=== PATIENT | male | born 1990 | race Caucasian/White ===

== ENCOUNTER 2020-01-24 01:32 | Emergency (ER) | payer BC ==
[~2020-01-24] VITALS: Ht 177.8 cm; Wt 75.0 kg
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
[2020-01-24 01:57] LABS: BASO # 0.1 x10^3/uL (0.0-0.2); BASO % 1 % (0-3); EOS # 0.1 x10^3/uL (0.0-0.7); EOS % 1 % (0-3); HEMATOCRIT 41.1 % (39.0-53.0); LYMPH # 1.2 x10^3/uL (1.0-4.8); LYMPH % 16 % (24-48); MEAN CORPUSCULAR HEMOGLOBIN 31 pg (25-35); MEAN CORPUSCULAR HGB CONC 34 g/dL (31-37); MEAN CORPUSCULAR VOLUME 90 fL (79-100); MONO # 0.5 x10^3/uL (0.0-1.1); MONO % 7 % (0-9); NEUT # 5.6 x10^3/uL (1.8-7.7); NEUT % 76 % (31-73); PLATELET COUNT 263 x10^3/uL (140-400); RED BLOOD COUNT 4.55 x10^6/uL (4.30-5.70); RED CELL DISTRIBUTION WIDTH 13.3 % (11.5-14.5); WHITE BLOOD COUNT 7.4 x10^3/uL (4.0-11.0)
[2020-01-24 02:05] LABS: CALCIUM 8.7 mg/dL (8.5-10.1); CREATININE 0.8 mg/dL (0.7-1.3); GFR 113.5; POTASSIUM 4.2 mmol/L (3.5-5.1)
[2020-01-24 02:12] LABS: ALBUMIN 3.9 g/dL (3.4-5.0); ALBUMIN/GLOBULIN RATIO 1.1 (1.0-1.7); TOTAL BILIRUBIN 0.3 mg/dL (0.2-1.0); TOTAL PROTEIN 7.4 g/dL (6.4-8.2)
--- NOTE | 2020-01-24 02:27 | RAD ---
EXAM: PORTABLE CHEST 1V 01/24/2020 1:48 AM CLINICAL INDICATION: Chest pain COMPARISON: None TECHNIQUE: AP upright view of the chest FINDINGS: The heart and mediastinum are normal. Lungs are well-expanded and clear. No consolidation, pleural effusion, or pneumothorax. Pulmonary vascularity is normal. The thoracic skeleton is intact. IMPRESSION: Normal chest radiograph. Electronically signed by: Claribel Roblero MD (01/24/2020 2:24 AM) [id number]
[2020-01-24 02:55] VITALS: BP 124/73
--- NOTE | 2020-01-24 04:34 | EKG ---
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
== END 2020-01-24 03:05 | disposition home or self-care (01) ==
LOC: ER 01:32
DX: S40.212A Abrasion of left shoulder, initial encounter (principal); R07.89 Other chest pain; F17.200 Nicotine dependence, unspecified, uncomplicated; X58.XXXA Exposure to other specified factors, initial encounter; Y93.89 Activity, other specified; Y92.89 Other specified places as the place of occurrence of the external cause; Y99.8 Other external cause status
CPT/HCPCS: 36415; 71045; 80053; 83690; 84484; 85025; 85379; 93005; 99285; G0480

== ENCOUNTER 2020-02-17 14:29 | Emergency (ER) | payer BC ==
[~2020-02-17] VITALS: Ht 177.8 cm; Wt 72.7 kg
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
[2020-02-17 17:16] VITALS: BP 150/92
== END 2020-02-17 17:16 | disposition home or self-care (01) ==
LOC: ER 14:29
DX: S30.860A Insect bite (nonvenomous) of lower back and pelvis, initial encounter (principal); M25.551 Pain in right hip; F41.9 Anxiety disorder, unspecified; F32.9 Major depressive disorder, single episode, unspecified; F17.200 Nicotine dependence, unspecified, uncomplicated; Z98.890 Other specified postprocedural states; W57.XXXA Bitten or stung by nonvenomous insect and other nonvenomous arthropods, initial encounter; Y93.89 Activity, other specified; Y92.89 Other specified places as the place of occurrence of the external cause; Y99.8 Other external cause status
CPT/HCPCS: 73502; 99283

== ENCOUNTER 2020-04-04 12:21 | Emergency (ER) | payer SELFPAY ==
[~2020-04-04] VITALS: Ht 177.8 cm; Wt 72.7 kg
[2020-04-04 12:45] VITALS: BP 148/72
[2020-04-04 16:27] LABS: BASO # 0.1 x10^3/uL (0.0-0.2); BASO % 1 % (0-3); EOS # 0.1 x10^3/uL (0.0-0.7); EOS % 2 % (0-3); HEMATOCRIT 39.4 % (39.0-53.0); HEMOGLOBIN 13.4 g/dL (13.0-17.5); LYMPH # 1.8 x10^3/uL (1.0-4.8); LYMPH % 30 % (24-48); MEAN CORPUSCULAR HEMOGLOBIN 31 pg (25-35); MEAN CORPUSCULAR HGB CONC 34 g/dL (31-37); MEAN CORPUSCULAR VOLUME 92 fL (79-100); MONO # 0.6 x10^3/uL (0.0-1.1); MONO % 10 % (0-9); NEUT # 3.5 x10^3/uL (1.8-7.7); NEUT % 58 % (31-73); PLATELET COUNT 234 x10^3/uL (140-400); RED BLOOD COUNT 4.29 x10^6/uL (4.30-5.70); RED CELL DISTRIBUTION WIDTH 13.2 % (11.5-14.5); WHITE BLOOD COUNT 6.1 x10^3/uL (4.0-11.0)
[2020-04-04 16:46] LABS: ACETAMIN < 2 mcg/ml (10-30); SALIC < 2.8 mg/dL (2.8-20.0)
[2020-04-04 16:47] LABS: ETHANOL < 10 mg/dL (0-10)
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
[2020-04-04 16:54] LABS: ALBUMIN 3.6 g/dL (3.4-5.0); ALBUMIN/GLOBULIN RATIO 1.2 (1.0-1.7); CALCIUM 8.3 mg/dL (8.5-10.1); CREATININE 0.6 mg/dL (0.7-1.3); GFR 158.2; POTASSIUM 3.8 mmol/L (3.5-5.1); TOTAL BILIRUBIN 0.5 mg/dL (0.2-1.0); TOTAL PROTEIN 6.6 g/dL (6.4-8.2)
[2020-04-04] MEDS ORDERED: hydrOXYzine 25 MG TABLET PO ONE (17:00)
[2020-04-04 18:15] LABS: BARBITURATES NEG (NEG); BENZODIAZEPINES NEG (NEG); CANNABINOIDS NEG (NEG); COCAINE NEG (NEG); METHADONE NEG (NEG); OPIATES NEG (NEG); PHENCYCLIDINE NEG (NEG)
[2020-04-04] MEDS ORDERED: HYDR25TA PO (18:16)
[2020-04-04 18:21] LABS: AMPHETAMINE/METHAMPHETAMINE NEG (NEG)
== END 2020-04-04 18:26 | disposition home or self-care (01) ==
LOC: ER 12:21
DX: F41.9 Anxiety disorder, unspecified (principal); R11.0 Nausea; R51.9 Headache, unspecified; F32.9 Major depressive disorder, single episode, unspecified; I10 Essential (primary) hypertension; F17.210 Nicotine dependence, cigarettes, uncomplicated; Z98.890 Other specified postprocedural states
CPT/HCPCS: 36415; 80053; 80307; 80329; 85025; 99284; G0480

== ENCOUNTER 2020-04-17 10:22 | Emergency (ER) | payer SELFPAY ==
[~2020-04-17] VITALS: Ht 177.8 cm; Wt 72.7 kg
[~2020-04-17 10:22] MED LIST: HYDR25TA PO
--- NOTE | 2020-04-17 11:09 | PHYS DOC ---
Past Medical History Past Medical History: Anxiety, Depression, Hypertension Past Surgical History: Other Additional Past Surgical Histo: L ANKLE, L HAND Smoking Status: Current Every Day Smoker Alcohol Use: Occasionally Drug Use: None General Adult EDM: Chief Complaint: Insomnia HPI: HPI: Patient is a 29 year old male who presents with stating that he cannot sleep and he is very anxious. States he has been up for the last 4 days with maybe an hour or 2 of sleep. He states his neighbors are constantly yelling at him and are harassing him. He states that he is taking kratom every 6 hours because it helps with his shoulder pain he can get his shoulder fixed. He states that kratom does not make you awake it is a sedative. He states that it helps his pain. He states that " he knows his body and I know more about this than you do and that is not how it works." Patient states what is keeping him awake is his " nerves". I asked the patient if he has ever been seen or been on medication for his anxiety. He states " yes, I have been seen in all they do is try to get me that trash hydroxyzine. That stuff is worse for you and is more of a sedative and does not help. They will not give me the good stuff." I told the patient it is likely the kratom and he would not be getting anything stronger than hydroxyzine in the emergency room. " Hydroxyzine is trash. It kills you. It is worse for you than any other medication you can give me. It is a sedative." I told the patient that hydroxyzine when taking appropriately will not kill you and will not be addictive. I told him that Xanax and other prescribed medications are more likely to become addictive and can kill you but also they are sedatives. Patient states " you are wrong and you do not know anything." Patient has a history of depression, anxiety, smoker, hypertension. Patient seems very paranoid. Patient is yelling at me and becoming aggressive while i'm in the room. Review of Systems: Review of Systems: Constitutional: Denies fever or chills. [] Eyes: Denies change in visual acuity. [] HENT: Denies nasal congestion or sore throat. [] Respiratory: Denies cough or shortness of breath. [] Cardiovascular: Denies chest pain or edema. [] GI: Denies abdominal pain, nausea, vomiting, bloody stools or diarrhea. [] : Denies dysuria. [] Musculoskeletal: Denies back pain or joint pain. [] Integument: Denies rash. [] Neurologic: Denies headache, focal weakness or sensory changes. [] Endocrine: Denies polyuria or polydipsia. [] Lymphatic: Denies swollen glands. [] Psychiatric: Denies depression. +anxiety, +Paranoia, +insomnia. [] Heart Score: Risk Factors: Risk Factors: DM, Current or recent (<one month) smoker, HTN, HLP, family history of CAD, obesity. Risk Scores: Score 0 - 3: 2.5% MACE over next 6 weeks - Discharge Home Score 4 - 6: 20.3% MACE over next 6 weeks - Admit for Clinical Observation Score 7 - 10: 72.7% MACE over next 6 weeks - Early Invasive Strategies Allergies: Allergies: Allergies Coded Allergies Type Severity Reaction Last Updated Verified No Known Drug Allergies 01/24/20 No Physical Exam: PE: Constitutional: Well developed, well nourished, no acute distress, non-toxic appearance. [] HENT: Normocephalic, atraumatic, bilateral external ears normal, oropharynx moist, no oral exudates, nose normal. [] Eyes: PERRLA, EOMI, conjunctiva normal, no discharge. [] Neck: Normal range of motion, no tenderness, supple, no stridor. [] Cardiovascular:Heart rate regular rhythm, no murmur [] Lungs & Thorax: Bilateral breath sounds clear to auscultation [] Abdomen: Bowel sounds normal, soft, no tenderness, no masses, no pulsatile masses. [] Skin: Warm, dry, no erythema, no rash. [] Back: No tenderness, no CVA tenderness. [] Extremities: No tenderness, no cyanosis, no clubbing, ROM intact, no edema. [] Neurologic: Alert and oriented X 3, normal motor function, normal sensory function, no focal deficits noted. [] Psychologic: Paranoid, anxious, aggressive. Affect normal, judgement normal, mood normal. [] EKG: EK and read by Dr. Jimenes as sinus tach and no STEMI. Radiology/Procedures: Radiology/Procedures: [] Course & Med Decision Making: Course & Med Decision Making Pertinent Labs and Imaging studies reviewed. (See chart for details) See HPI. Patient is alert and oriented x4. Speaks in full complete sentences. Ambulatory with a steady gait. Skin pink warm and dry. Patient denies chest pain, shortness of breath, headache, dizziness, syncope, drug use, alcohol use, abdominal pain, nausea, vomiting, diarrhea, cough, fever, numbness or tingling, focal weakness. I have spoken to Mao with PAT team and they are coming in to speak with the patient. Blood work unremarkable. Patient is stable. PAT team actually went in to talk to the patient who refused her resources and told her also that it was not the Kratom. He states he has not been to stop taking kratom. He states he does not want her resources or help to get any other medications. Patient has been medically cleared. Patient also denies SI or HI or any hallucinations. He denied this with the PAT team too. Patient is discharged with Vistaril. [] Jayjay Disclaimer: Jayjay Disclaimer: This electronic medical record was generated, in whole or in part, using a voice recognition dictation system. 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 Stop using kratom or try to slowly wean yourself off of it. Take a Benadryl to see if that helps you sleep provider use the hydroxyzine I have given you. Scripts Hydroxyzine Hcl (HYDROXYZINE HCL) 25 Mg Tablet 1 TAB PO BID, #14 TAB Prov: MORA FORRESTER APRN 04/17/20 MORA FORRESTER APRN Apr 17, 2020 11:09
[2020-04-17] MEDS ORDERED: IV NORMAL SALINE 1000ML BAG 1,000 ML IV SCH (11:15)
[2020-04-17 11:27] LABS: BILIRUBIN,URINE SMALL (NEG); CLARITY,URINE CLEAR; COLOR,URINE AMBER; NITRITE,URINE NEGATIVE (NEG); PH,URINE 5.5 (<5.0-8.0); PROTEIN,URINE 30 mg/dL (NEG-TRACE)
[2020-04-17 11:29] LABS: BASO # 0.1 x10^3/uL (0.0-0.2); BASO % 1 % (0-3); EOS # 0.2 x10^3/uL (0.0-0.7); EOS % 2 % (0-3); HEMOGLOBIN 15.2 g/dL (13.0-17.5); LYMPH # 1.8 x10^3/uL (1.0-4.8); LYMPH % 19 % (24-48); MEAN CORPUSCULAR HEMOGLOBIN 31 pg (25-35); MEAN CORPUSCULAR HGB CONC 34 g/dL (31-37); MEAN CORPUSCULAR VOLUME 90 fL (79-100); MONO # 0.8 x10^3/uL (0.0-1.1); MONO % 8 % (0-9); NEUT # 6.6 x10^3/uL (1.8-7.7); NEUT % 70 % (31-73); PLATELET COUNT 342 x10^3/uL (140-400); RED BLOOD COUNT 4.91 x10^6/uL (4.30-5.70); RED CELL DISTRIBUTION WIDTH 12.8 % (11.5-14.5); WHITE BLOOD COUNT 9.3 x10^3/uL (4.0-11.0)
[2020-04-17 11:35] LABS: BARBITURATES NEG (NEG); BENZODIAZEPINES NEG (NEG); CANNABINOIDS NEG (NEG); COCAINE NEG (NEG); METHADONE NEG (NEG); OPIATES NEG (NEG); PHENCYCLIDINE NEG (NEG)
[2020-04-17 11:39] LABS: CALCIUM 8.8 mg/dL (8.5-10.1); CREATININE 0.8 mg/dL (0.7-1.3); GFR 113.5; POTASSIUM 3.3 mmol/L (3.5-5.1)
[2020-04-17 11:41] LABS: BACTERIA,URINE FEW /HPF (0-FEW); HYALINE CASTS, URINE OCCASIONAL /HPF; RBC,URINE 0 /HPF (0-2); WBC,URINE 0 /HPF (0-4)
[2020-04-17 11:44] LABS: AMPHETAMINE/METHAMPHETAMINE NEG (NEG)
[2020-04-17 11:46] LABS: ALBUMIN 4.1 g/dL (3.4-5.0); ALBUMIN/GLOBULIN RATIO 1.1 (1.0-1.7); TOTAL BILIRUBIN 0.9 mg/dL (0.2-1.0); TOTAL PROTEIN 7.8 g/dL (6.4-8.2)
[2020-04-17 11:54] LABS: ACETAMIN < 2 mcg/ml (10-30); ETHANOL < 10 mg/dL (0-10); SALIC < 2.8 mg/dL (2.8-20.0)
[2020-04-17] MEDS ORDERED: HYDR25TA PO (13:10)
[2020-04-17 14:19] VITALS: BP 125/68
== END 2020-04-17 14:35 | disposition home or self-care (01) ==
LOC: ER 10:22
DX: F41.9 Anxiety disorder, unspecified (principal); G47.00 Insomnia, unspecified; F32.9 Major depressive disorder, single episode, unspecified; I10 Essential (primary) hypertension; F17.200 Nicotine dependence, unspecified, uncomplicated; Z98.890 Other specified postprocedural states
CPT/HCPCS: 36415; 80053; 80307; 80329; 81001; 83690; 83880; 84484; 85025; 96360; 96361; 99285; G0480; J7030; 93005

== ENCOUNTER 2020-05-03 03:09 | Emergency (ER) | payer SELFPAY ==
[~2020-05-03] VITALS: Ht 177.8 cm; Wt 72.7 kg
[2020-05-03 03:30] VITALS: BP 132/78
[2020-05-03] MEDS ORDERED: IBUPROFEN 400 MG TABLET. PO ONE (03:30)
[2020-05-03] MEDS ORDERED: CYCLOBENZAPRINE 10 MG TABLET. PO ONE (04:30)
[2020-05-03] MEDS ORDERED: CYCL10TA2 PO (04:38)
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
== END 2020-05-03 05:00 | disposition home or self-care (01) ==
LOC: ER 03:09
DX: M25.511 Pain in right shoulder (principal); R25.2 Cramp and spasm; F41.9 Anxiety disorder, unspecified; F32.9 Major depressive disorder, single episode, unspecified; I10 Essential (primary) hypertension; F17.200 Nicotine dependence, unspecified, uncomplicated; Z98.890 Other specified postprocedural states
CPT/HCPCS: 99283

== ENCOUNTER 2020-09-21 22:01 | Emergency (ER) | payer SELFPAY ==
[~2020-09-21] VITALS: Ht 177.8 cm; Wt 58.0 kg
[~2020-09-21 22:01] MED LIST changes: +CYCL10TA2 PO
--- NOTE | 2020-09-21 22:11 | EKG ---
[facility] [address] [place] [address] Test Date: 2020-09-21 Test Time: 22:03:31 Pat Name: ARACELI HEADLEY Department: Room: Gender: M Mica Sizer: : 1990 Requested By: TRAN LOJA Order Number: [id number] Reading MD: Measurements Intervals Painter Rate: 88 P: 16 NM: 182 QRS: 68 QRSD: 94 T: 41 QT: 378 QTc: 461 Interpretive Statements SINUS RHYTHM QRS(T) CONTOUR ABNORMALITY CONSIDER INFERIOR MYOCARDIAL DAMAGE POSSIBLY ABNORMAL ECG RI6.01 No previous ECG available for comparison
--- NOTE | 2020-09-21 22:12 | PHYS DOC ---
Past Medical History Past Medical History: Anxiety, Depression, Hypertension Past Surgical History: Other Additional Past Surgical Histo: L ANKLE, L HAND Smoking Status: Current Every Day Smoker Alcohol Use: None Drug Use: None General Adult EDM: Chief Complaint: CHEST PAIN HPI: HPI: Patient is a 30 year old male presents with the chief complaint of chest pain. Onset of chest pain 1 hour prior to arrival. Patient states pain is located substernal and constant since onset. Denies any associated SOB, nausea, or vomiting. Patient states he feels fatigued and weak. States prior to arrival he felt as if he was going to pass out. Review of Systems: Review of Systems: Review of systems: Constitutional symptoms- No fever, no chills. Eyes- No Discharge, No Visual Loss Respiratory symptoms- No shortness of breath, No wheezing, No Dyspnea on Exertion Cardiovascular Systems;Positive chest pain, No Palpitations, No syncope Gastrointestinal symptoms: NO abdominal pain, no nausea, no vomiting or diarrhea. Genitourinary symptoms: No dysuria. Musculoskeletal symptoms: No back pain No extremity pain. NEUROLOGICAL Symptoms: No headache, no generalized weakness; No focal Weakness positive fatigue Heart Score: C/O Chest Pain: N/A Risk Factors: Risk Factors: DM, Current or recent (<one month) smoker, HTN, HLP, family history of CAD, obesity. Risk Scores: Score 0 - 3: 2.5% MACE over next 6 weeks - Discharge Home Score 4 - 6: 20.3% MACE over next 6 weeks - Admit for Clinical Observation Score 7 - 10: 72.7% MACE over next 6 weeks - Early Invasive Strategies Allergies: Allergies: Allergies Coded Allergies Type Severity Reaction Last Updated Verified No Known Drug Allergies 01/24/20 No Physical Exam: PE: General: alert, no acute distress. Skin: warm, dry and intact. Head:: Normocephalic, atraumatic. Neck: Trachea midline. Eyes: EOMI, Normal conjunctiva, No drainage CARDIOVASCULAR: Regular rate and rhythm RESPIRATORY: No respiratory distress Back: Full range of motion. MUSCULOSKELETAL: Full range of motion of bilateral upper and lower extremities. GASTROINTESTINAL: Abdomen soft without rebound or guarding. NEUROLOGICAL: Alert and noted to person, place and time. No neurological deficits observed Psychiatric: Cooperative. Normal judgment EKG: EKG: [] Normal Sinus Rhythm Rate [address] elevation No ST depression No acute AR Performed at 2203 Radiology/Procedures: Radiology/Procedures: [] Impression: Chest x-ray no acute abnormality Course & Med Decision Making: Course & Med Decision Making Pertinent Labs and Imaging studies reviewed. (See chart for details) [] Dragon Disclaimer: Dragon Disclaimer: This electronic medical record was generated, in whole or in part, using a voice recognition dictation system. Departure Departure Impression: Primary Impression: Chest pain Disposition: HOME / SELF CARE / HOMELESS Condition: STABLE Referrals: UNKNOWN PCP NAME (PCP) Patient Instructions: Chest Pain (Nonspecific) TRAN LOJA DO Sep 21, 2020 22:12
[2020-09-21 22:15] LABS: BASO % 1 % (0-3); EOS # 0.1 x10^3/uL (0.0-0.7); EOS % 1 % (0-3); HEMATOCRIT 38.5 % (39.0-53.0); LYMPH # 1.5 x10^3/uL (1.0-4.8); LYMPH % 24 % (24-48); MEAN CORPUSCULAR HEMOGLOBIN 31 pg (25-35); MEAN CORPUSCULAR HGB CONC 34 g/dL (31-37); MEAN CORPUSCULAR VOLUME 92 fL (79-100); MONO # 0.4 x10^3/uL (0.0-1.1); MONO % 7 % (0-9); NEUT # 4.2 x10^3/uL (1.8-7.7); NEUT % 67 % (31-73); PLATELET COUNT 248 x10^3/uL (140-400); RED BLOOD COUNT 4.18 x10^6/uL (4.30-5.70); RED CELL DISTRIBUTION WIDTH 13.1 % (11.5-14.5); WHITE BLOOD COUNT 6.3 x10^3/uL (4.0-11.0)
[2020-09-21 22:32] LABS: CREATININE 0.9 mg/dL (0.7-1.3); GFR 98.4; POTASSIUM 3.5 mmol/L (3.5-5.1)
[2020-09-21 22:37] LABS: ALBUMIN 3.8 g/dL (3.4-5.0); ALBUMIN/GLOBULIN RATIO 1.3 (1.0-1.7); TOTAL BILIRUBIN 0.3 mg/dL (0.2-1.0); TOTAL PROTEIN 6.7 g/dL (6.4-8.2)
--- NOTE | 2020-09-21 22:49 | RAD ---
Exam: Chest one view INDICATION: Chest pain TECHNIQUE: Frontal view of the chest Comparisons: 01/24/2020 FINDINGS: The cardiomediastinal silhouette and pulmonary vessels are within normal limits. The lung and pleural spaces are clear. IMPRESSION: No acute cardiopulmonary process. Electronically signed by: Yuliana Saleh MD (09/21/2020 10:47 PM) [facility]
[2020-09-21 22:55] VITALS: BP 128/79
== END 2020-09-21 23:07 | disposition home or self-care (01) ==
LOC: ER 22:01
DX: R07.2 Precordial pain (principal); I10 Essential (primary) hypertension; F17.200 Nicotine dependence, unspecified, uncomplicated
CPT/HCPCS: 36415; 71045; 80053; 84484; 85025; 93005; 99285-25

== ENCOUNTER 2020-11-18 20:46 | Emergency (ER) | payer SELFPAY ==
[~2020-11-18 20:46] MED LIST changes: +SENN-189 PO
[2020-11-18 22:00] VITALS: BP 143/88
== END 2020-11-19 02:36 | disposition left against medical advice (07) ==
LOC: ER 20:46
DX: R10.9 Unspecified abdominal pain (principal); Z53.21 Procedure and treatment not carried out due to patient leaving prior to being seen by health care provider

== ENCOUNTER 2020-11-23 13:32 | Emergency (ER) | payer SELFPAY ==
[~2020-11-23] VITALS: Ht 177.8 cm; Wt 70.5 kg
[2020-11-23] MEDS ORDERED: methylPREDNISolone SOD SUCC PF 125 MG/2 ML VIAL. IM ONE (17:30)
[2020-11-23] MEDS ORDERED: FAMOTIDINE 20 MG TABLET. PO ONE (17:30)
[2020-11-23] MEDS ORDERED: diphenhydrAMINE HCL 25 MG CAPSULE PO ONE (17:30)
--- NOTE | 2020-11-23 18:10 | PHYS DOC ---
Past Medical History Past Medical History: Anxiety, Depression, Hypertension Additional Past Medical Histor: Chronic pain Past Surgical History: Other Additional Past Surgical Histo: WRIST AND ANKLE SURGERY Smoking Status: Current Every Day Smoker Alcohol Use: Occasionally Drug Use: None General Adult EDM: Chief Complaint: FACE PROBLEM HPI: HPI: Patient is a 30 year old male with history of depression, hypertension, anxiety, who presents to the ED today complaining of upper chest swelling that began this morning when he woke up. Patient denies ingesting anything new but states he takes Kratom and CBD. Denies any new soaps or laundry detergents. Review of Systems: Review of Systems: Constitutional: Denies fever or chills. [] Eyes: Denies change in visual acuity. [] HENT: Denies nasal congestion or sore throat. [] Respiratory: Denies cough or shortness of breath. [] Cardiovascular: Denies chest pain or edema. [] GI: Denies abdominal pain, nausea, vomiting, bloody stools or diarrhea. [] : Denies dysuria. [] Musculoskeletal: Denies back pain or joint pain. [] Integument: Reports upper face swelling Neurologic: Denies headache, focal weakness or sensory changes. [] Psychiatric: Denies depression or anxiety. [] Heart Score: C/O Chest Pain: N/A Risk Factors: Risk Factors: DM, Current or recent (<one month) smoker, HTN, HLP, family history of CAD, obesity. Risk Scores: Score 0 - 3: 2.5% MACE over next 6 weeks - Discharge Home Score 4 - 6: 20.3% MACE over next 6 weeks - Admit for Clinical Observation Score 7 - 10: 72.7% MACE over next 6 weeks - Early Invasive Strategies Current Medications: Current Medications Medications (Trade) Dose Ordered Sig/Barbara Start Time Stop Time Status Last Admin Dose Admin Diphenhydramine HCl (Benadryl) 25 mg 1X ONCE 11/23/20 17:30 11/23/20 17:31 DC 11/23/20 17:45 25 MG Famotidine (Pepcid) 20 mg 1X ONCE 11/23/20 17:30 11/23/20 17:31 DC 11/23/20 17:45 20 MG Methylprednisolone Sodium Succinate (SOLU-Medrol 125MG VIAL) 125 mg 1X ONCE 8/16/21 17:30 11/23/20 17:31 DC 11/23/20 17:45 125 MG Allergies: Allergies: Allergies Coded Allergies Type Severity Reaction Last Updated Verified No Known Drug Allergies 01/24/20 No Physical Exam: PE: Constitutional: Well developed, well nourished, no acute distress, non-toxic appearance. [] HENT: Normocephalic, atraumatic, bilateral external ears normal, oropharynx moist, no oral exudates, nose normal. Airway is open Eyes: PERRLA, EOMI, conjunctiva normal, no discharge. [] Neck: Normal range of motion, no tenderness, supple, no stridor. [] Cardiovascular:Heart rate regular rhythm, no murmur [] Lungs & Thorax: Bilateral breath sounds clear to auscultation [] Abdomen: Bowel sounds normal, soft, no tenderness, no masses, no pulsatile masses. [] Skin: Swelling noted on the lateral aspect of the eyes only. No airway involvement. No lip throat or tongue swelling. Airway is open Back: No tenderness, no CVA tenderness. [] Extremities: No tenderness, no cyanosis, no clubbing, ROM intact, no edema. [] Neurologic: Alert and oriented X 3, normal motor function, normal sensory function, no focal deficits noted. [] Psychologic: Affect normal, judgement normal, mood normal. [] Current Patient Data: Vital Signs: Vital Signs Date Time Temp Pulse Resp B/P (MAP) Pulse Ox O2 Delivery O2 Flow Rate FiO2 11/23/20 16:58 97.3 87 25 164/86 (106) 100 Nasal Cannula 97.3 EKG: EKG: [] Radiology/Procedures: Radiology/Procedures: [] Course & Med Decision Making: Course & Med Decision Making Pertinent Labs and Imaging studies reviewed. (See chart for details) This is a 30-year-old male patient presenting to the ED today with upper facial swelling that began this morning. Patient denies any new foods, new laundry detergents, or coming in contact with anything new. There is no airway involvement. Patient was given Solu-Medrol, Pepcid and Benadryl. Discharge to home. Discouraged from using Kratom, CBD considering we have no idea what ingredients are in this product there is a chance this is a source for his symptoms Jayjay Disclaimer: Jayjay Disclaimer: This electronic medical record was generated, in whole or in part, using a voice recognition dictation system. Departure Departure Impression: Primary Impression: Facial swelling Disposition: HOME / SELF CARE / HOMELESS Condition: STABLE Referrals: NO PCP (PCP) follow up in one week Patient Instructions: Allergies, Generic Additional Instructions: You were evaluated in the emergency room for facial swelling. We encourage you to consider not using CBD and kratom, we do not know if this could be the source of your swelling, we have no idea the ingredients of these products just consider not using this products. Take the prescribed medications as ordered. Follow-up with your own doctor Scripts Diphenhydramine Hcl (BENADRYL) 25 Mg Capsule 1 CAP PO Q6HRS, #20 CAP 0 Refills Prov: CELIA TAYLOR APRN 11/23/20 Famotidine (FAMOTIDINE) 20 Mg Tablet 20 MG PO DAILY, #7 TAB Prov: CELIA TAYLOR APRN 11/23/20 Prednisone (PREDNISONE) 50 Mg Tablet 1 TAB PO DAILY, #5 TAB Prov: CELIA TAYLOR APRN 11/23/20 CELIA TAYLOR APRN Nov 23, 2020 18:10
[2020-11-23] MEDS ORDERED: PRED50TA PO (18:18)
[2020-11-23] MEDS ORDERED: FAMO20TA5 PO (18:18)
[2020-11-23] MEDS ORDERED: DIPH25CA58 PO (18:18)
[2020-11-23 18:28] VITALS: BP 128/66
[2020-11-24] MEDS ORDERED: CYCL10TA2 PO (01:16)
== END 2020-11-23 18:35 | disposition home or self-care (01) ==
LOC: ER 13:32
DX: R22.0 Localized swelling, mass and lump, head (principal); I10 Essential (primary) hypertension; G89.29 Other chronic pain; F17.200 Nicotine dependence, unspecified, uncomplicated
CPT/HCPCS: 96372; 99283; J2930; Q0163

== ENCOUNTER 2020-11-23 21:01 | Emergency (ER) | payer SELFPAY ==
[~2020-11-23] VITALS: Ht 177.8 cm; Wt 72.0 kg
[~2020-11-23 21:01] MED LIST changes: +DIPH25CA58 PO; +FAMO20TA5 PO; +PRED50TA PO
[2020-11-24 00:30] VITALS: BP 142/87
--- NOTE | 2020-11-24 01:10 | RAD ---
AP chest x-ray HISTORY: Shortness of breath. COMPARISON: Chest x-ray September 21, 2020 FINDINGS: Heart size normal. Mediastinal silhouette is normal. No pneumothorax, pulmonary opacities o r pleural effusions. Bones are unremarkable. IMPRESSION: No acute process. Electronically signed by: Candido Bocanegra MD (11/24/2020 1:07 AM) [facility]
[2020-11-24] MEDS ORDERED: CYCL10TA2 PO (01:16)
--- NOTE | 2020-11-24 01:16 | PHYS DOC ---
Past Medical History Past Medical History: Anxiety, Depression, Hypertension Additional Past Medical Histor: Chronic pain Past Surgical History: Other Additional Past Surgical Histo: L hand, L ankel, L shoulder Smoking Status: Former Smoker Alcohol Use: Occasionally Drug Use: None Social History Narrative: NEGAR husain General Adult EDM: Chief Complaint: SHORTNESS OF BREATH HPI: HPI: Patient is a 30 year old male with a history of hypertension, depression, anxiety, who presents to the ED today after being evaluated a couple hours ago currently complaining of headache, neck pain, shortness of air. Patient states he was exposed to somebody with chronic pneumonia a couple days ago. Patient denies any fever. Denies any chest pain. Was evaluated a couple hours ago for facial swelling. He was sent home on steroids Pepcid and Benadryl. He was given Solu-Medrol IM in the ED as well as Pepcid and Benadryl. Review of Systems: Review of Systems: Constitutional: Denies fever or chills. [] Eyes: Denies change in visual acuity. [] HENT: Reports ongoing facial swelling. Denies nasal congestion or sore throat. [] Respiratory: Reports shortness of breath, denies cough Cardiovascular: Denies chest pain or edema. [] GI: Denies abdominal pain, nausea, vomiting, bloody stools or diarrhea. [] : Denies dysuria. [] Musculoskeletal: Reports neck pain. Denies back pain Integument: Denies rash. [] Neurologic: Denies headache, focal weakness or sensory changes. [] Psychiatric: Denies depression or anxiety. [] Heart Score: C/O Chest Pain: N/A Risk Factors: Risk Factors: DM, Current or recent (<one month) smoker, HTN, HLP, family history of CAD, obesity. Risk Scores: Score 0 - 3: 2.5% MACE over next 6 weeks - Discharge Home Score 4 - 6: 20.3% MACE over next 6 weeks - Admit for Clinical Observation Score 7 - 10: 72.7% MACE over next 6 weeks - Early Invasive Strategies Allergies: Allergies: Allergies Coded Allergies Type Severity Reaction Last Updated Verified No Known Drug Allergies 01/24/20 No Physical Exam: PE: Constitutional: Well developed, well nourished, no acute distress, non-toxic appearance. [] HENT: Normocephalic, atraumatic, bilateral external ears normal, oropharynx moist, no oral exudates, nose normal. [] Eyes: PERRLA, EOMI, conjunctiva normal, no discharge. [] Neck: Normal range of motion, no tenderness, supple, no stridor. [] Cardiovascular:Heart rate regular rhythm, no murmur [] Lungs & Thorax: Bilateral breath sounds clear to auscultation [] Abdomen: Bowel sounds normal, soft, no tenderness, no masses, no pulsatile masses. [] Skin: Warm, dry, no erythema, no rash. [] Back: No tenderness, no CVA tenderness. [] Extremities: No tenderness, no cyanosis, no clubbing, ROM intact, no edema. [] Neurologic: Alert and oriented X 3, normal motor function, normal sensory function, no focal deficits noted. [] Psychologic: Flat affect, Current Patient Data: Labs: Laboratory Tests Test 11/24/20 00:38 SARS-CoV-2 Antigen (Rapid) Negative (NEGATIVE) Vital Signs: Vital Signs Date Time Temp Pulse Resp B/P (MAP) Pulse Ox O2 Delivery O2 Flow Rate FiO2 11/24/20 00:30 98.7 71 20 142/87 98 Room Air 98.7 EKG: EKG: [] Radiology/Procedures: Radiology/Procedures: []PROCEDURE: CHEST AP ONLY AP chest x-ray HISTORY: Shortness of breath. COMPARISON: Chest x-ray September 21, 2020 FINDINGS: Heart size normal. Mediastinal silhouette is normal. No pneumothorax, pulmonary opacities or pleural effusions. Bones are unremarkable. IMPRESSION: No acute process. Electronically signed by: Gwen Bocanegra MD (11/24/2020 1:07 AM) [facility] [place] DICTATED and SIGNED BY: GWEN BOCANEGRA MD DATE: 11/24/20 [id number] 0 Course & Med Decision Making: Course & Med Decision Making Pertinent Labs and Imaging studies reviewed. (See chart for details) This is a 30-year-old male patient returning to the ED after being seen a couple hours ago complaining of neck pain, headache, shortness of air, patient states he was exposed to somebody with pneumonia couple days ago. He was seen earlier for facial swelling. Vitals on arrival to the ED temperature 98.7, heart rate 71, respiration 20 on room air, O2 sats 98 to 100%, blood pressure 1 42/87 Negative Covid rapid test. Chest x-ray interpreted by radiologist is negative for any acute findings, patient was discharged to home. Follow-up with PCP in 1 week. Jayjay Disclaimer: Jayjay Disclaimer: This electronic medical record was generated, in whole or in part, using a voice recognition dictation system. Departure Departure Impression: Primary Impression: Headache Qualified Codes: R51.9 - Headache, unspecified Additional Impressions: Shortness of breath Person under investigation for COVID-19 Disposition: HOME / SELF CARE / HOMELESS Condition: STABLE Referrals: NO PCP (PCP) follow up with your doctor in one week Patient Instructions: Shortness of Breath, [id number] Additional Instructions: You were evaluated in the emergency room, your chest x-ray is negative for pneumonia or any acute findings. Your rapid Covid test is also negative. Pleas e quarantine yourself until you get results from us with the PCR Covid test. You can take [id number] Tylenol or Motrin as needed for your pain. We sent muscle relaxer to your pharmacy. You can take it as needed for your neck pain Scripts Cyclobenzaprine Hcl (CYCLOBENZAPRINE HCL) 10 Mg Tablet 1 TAB PO TID, #30 TAB Prov: CELIA TAYLOR APRN 11/24/20 CELIA TAYLOR APRN Nov 24, 2020 01:16
[2020-11-24 01:31] LABS: BARBITURATES NEG (NEG); BENZODIAZEPINES NEG (NEG); CANNABINOIDS NEG (NEG); COCAINE NEG (NEG); METHADONE NEG (NEG); OPIATES NEG (NEG); PHENCYCLIDINE NEG (NEG)
[2020-11-24 01:37] LABS: AMPHETAMINE/METHAMPHETAMINE NEG (NEG)
--- NOTE | 2020-11-24 17:15 | NUR ---
IP: Informed pt of negative covid test. Pt verbalized understanding.
== END 2020-11-24 01:59 | disposition home or self-care (01) ==
LOC: ER 21:01
DX: R51.9 Headache, unspecified (principal); Z20.822 Contact with and (suspected) exposure to COVID-19; R06.02 Shortness of breath; M54.2 Cervicalgia; I10 Essential (primary) hypertension; G89.29 Other chronic pain; Z87.891 Personal history of nicotine dependence
CPT/HCPCS: 71045; 80307; 87426; 99284; U0003; U0005

== ENCOUNTER 2020-12-17 10:51 | Emergency (ER) | payer SELFPAY ==
[~2020-12-17] VITALS: Ht 177.8 cm; Wt 72.0 kg
[2020-12-17] MEDS ORDERED: ASPIRIN 325 MG TABLET PO ONE (11:30)
[2020-12-17] MEDS ORDERED: IV NORMAL SALINE 1000ML BAG 1,000 ML IV ONE (11:30)
[2020-12-17 11:42] LABS: BASO % 1 % (0-3); EOS # 0.1 x10^3/uL (0.0-0.7); EOS % 1 % (0-3); HEMATOCRIT 41.9 % (39.0-53.0); HEMOGLOBIN 14.6 g/dL (13.0-17.5); LYMPH # 1.2 x10^3/uL (1.0-4.8); LYMPH % 14 % (24-48); MEAN CORPUSCULAR HEMOGLOBIN 32 pg (25-35); MEAN CORPUSCULAR HGB CONC 35 g/dL (31-37); MEAN CORPUSCULAR VOLUME 92 fL (79-100); MONO # 0.6 x10^3/uL (0.0-1.1); MONO % 7 % (0-9); NEUT # 6.9 x10^3/uL (1.8-7.7); NEUT % 78 % (31-73); PLATELET COUNT 310 x10^3/uL (140-400); RED BLOOD COUNT 4.54 x10^6/uL (4.30-5.70); RED CELL DISTRIBUTION WIDTH 13.1 % (11.5-14.5); WHITE BLOOD COUNT 8.8 x10^3/uL (4.0-11.0)
[2020-12-17 11:55] LABS: CALCIUM 8.5 mg/dL (8.5-10.1); CREATININE 0.8 mg/dL (0.7-1.3); GFR 112.8; POTASSIUM 4.6 mmol/L (3.5-5.1)
--- NOTE | 2020-12-17 11:56 | PHYS DOC ---
Past Medical History Past Medical History: Anxiety, Depression, Hypertension Additional Past Medical Histor: Chronic pain (CELIA TAYLOR PRODUCT AMBASSADOR) Past Surgical History: Other Additional Past Surgical Histo: L hand, L ankel, L shoulder (CELIA TAYLOR PRODUCT AMBASSADOR) Smoking Status: Current Every Day Smoker Additional Information: "I USUALLY VAPE" Alcohol Use: Heavy Drug Use: None (CELIA TAYLOR PRODUCT AMBASSADOR) General Adult EDM: Chief Complaint: BACK PAIN - NO INJURY HPI: HPI: Patient is a 30 year old male with history of anxiety, depression, hypertension, who presents to the ED today with multiple complaints. Patient is complaining of 5 out of 10 substernal chest pain nonradiating in nature described as sharp and intermittent, symptoms began at 1030. He is also complaining of 10 out of 10 low back pain and headache, symptoms began this morning while walking. Patient denies any injuries. Denies any loss of bowel/bladder function. States that back pain and headache as throbbing and intermittent worse on exertion at work and relieved by sitting down. Patient denies any fever, coughing or congestion. He states his chest pain is also relieved by sitting down and exacerbated by activities at work. Patient appears anxious and angry. (CELIA TAYLOR PRODUCT AMBASSADOR) Review of Systems: Review of Systems: Constitutional: Denies fever or chills. [] Eyes: Denies change in visual acuity. [] HENT: Denies nasal congestion or sore throat. [] Respiratory: Denies cough or shortness of breath. [] Cardiovascular: Reports chest pain GI: Denies abdominal pain, nausea, vomiting, bloody stools or diarrhea. [] : Denies dysuria. [] Musculoskeletal: Reports low back pain Integument: Denies rash. [] Neurologic: Reports headache, denies focal weakness or sensory changes. [] Psychiatric: Denies depression or anxiety. [] (CELIA TAYLOR PRODUCT AMBASSADOR) Heart Score: C/O Chest Pain: Yes HEART Score for Chest Pain: HEART Score for Chest Pain Response (Comments) Value History Slighlty/Non-Suspicious 0 ECG Normal 0 Age < 45 0 Risk Factors 1 or 2 Risk Factors 1 Troponin < Normal Limit 0 Total 1 Risk Factors: Risk Factors: DM, Current or recent (<one month) smoker, HTN, HLP, family history of CAD, obesity. Risk Scores: Score 0 - 3: 2.5% MACE over next 6 weeks - Discharge Home Score 4 - 6: 20.3% MACE over next 6 weeks - Admit for Clinical Observation Score 7 - 10: 72.7% MACE over next 6 weeks - Early Invasive Strategies (CELIA TAYLOR PRODUCT AMBASSADOR) Current Medications: Current Medications Medications (Trade) Dose Ordered Sig/Barbara Start Time Stop Time Status Last Admin Dose Admin Aspirin (Teddy Aspirin) 325 mg 1X ONCE 12/17/20 11:30 12/17/20 11:33 DC 12/17/20 11:36 325 MG Sodium Chloride 1,000 ml @ 1,000 mls/hr 1X ONCE 12/17/20 11:30 12/17/20 12:29 12/17/20 11:36 1,000 MLS/HR (CELIA TAYLOR PRODUCT AMBASSADOR) Allergies: Allergies: Allergies Coded Allergies Type Severity Reaction Last Updated Verified No Known Drug Allergies 01/24/20 No (CELIA TAYLOR PRODUCT AMBASSADOR) Physical Exam: PE: Constitutional: Well developed, well nourished, no acute distress, non-toxic appearance. [] HENT: Normocephalic, atraumatic, bilateral external ears normal, oropharynx moist, no oral exudates, nose normal. [] Eyes: PERRLA, EOMI, conjunctiva normal, no discharge. [] Neck: Normal range of motion, no tenderness, supple, no stridor. [] Cardiovascular:Heart rate regular rhythm, no murmur [] Lungs & Thorax: Bilateral breath sounds clear to auscultation [] Abdomen: Bowel sounds normal, soft, no tenderness, no masses, no pulsatile masses. [] Skin: Warm, dry, no erythema, no rash. [] Back: No tenderness, no CVA tenderness. [] Extremities: No tenderness, no cyanosis, no clubbing, ROM intact, no edema. [] Neurologic: Alert and oriented X 3, normal motor function, normal sensory function, no focal deficits noted. Cranial nerves II through XII intact Psychologic: Flat affect, appears anxious and angry (CELIA TAYLOR PRODUCT AMBASSADOR) Current Patient Data: Labs: Laboratory Tests Test 12/17/20 11:21 White Blood Count 8.8 x10^3/uL (4.0-11.0) Red Blood Count 4.54 x10^6/uL (4.30-5.70) Hemoglobin 14.6 g/dL (13.0-17.5) Hematocrit 41.9 % (39.0-53.0) Mean Corpuscular Volume 92 fL (79-100) Mean Corpuscular Hemoglobin 32 pg (25-35) Mean Corpuscular Hemoglobin Concent 35 g/dL (31-37) Red Cell Distribution Width 13.1 % (11.5-14.5) Platelet Count 310 x10^3/uL (140-400) Neutrophils (%) (Auto) 78 % (31-73) H Lymphocytes (%) (Auto) 14 % (24-48) L Monocytes (%) (Auto) 7 % (0-9) Eosinophils (%) (Auto) 1 % (0-3) Basophils (%) (Auto) 1 % (0-3) Neutrophils # (Auto) 6.9 x10^3/uL (1.8-7.7) Lymphocytes # (Auto) 1.2 x10^3/uL (1.0-4.8) Monocytes # (Auto) 0.6 x10^3/uL (0.0-1.1) Eosinophils # (Auto) 0.1 x10^3/uL (0.0-0.7) Basophils # (Auto) 0.0 x10^3/uL (0.0-0.2) Laboratory Tests 12/17/20 11:21 Vital Signs: Vital Signs Date Time Temp Pulse Resp B/P (MAP) Pulse Ox O2 Delivery O2 Flow Rate FiO2 12/17/20 11:11 98.9 112 16 117/85 (96) 99 Room Air 98.9 (CELIA TAYLOR PRODUCT AMBASSADOR) EKG: EK interpreted by Dr. Juarez sinus tachycardia heart rate 113 no STEMI [] (CELIA TAYLOR PRODUCT AMBASSADOR) Radiology/Procedures: Radiology/Procedures: []PROCEDURE: PORTABLE CHEST 1V EXAM: XR CHEST 1V 12/17/2020 11:47 AM CLINICAL INDICATION: Chest pain COMPARISON: Chest radiograph 11/24/2020 TECHNIQUE: AP upright view of the chest FINDINGS: The heart and mediastinum are normal. Lungs are well-expanded and clear. No consolidation, pleural effusion, or pneumothorax. Pulmonary vascularity is normal. No acute osseous abnormality. IMPRESSION: No acute cardiopulmonary abnormality. Electronically signed by: Claribel Roblero MD (12/17/2020 12:02 PM) [id number] DICTATED and SIGNED BY: CLARIBEL ROBLERO MD DATE: 12/17/20 [id number] (CELIA TAYLOR APRN) Course & Med Decision Making: Course & Med Decision Making Pertinent Labs and Imaging studies reviewed. (See chart for details) This is a 30-year-old male patient well-known to this ED presenting today complaining of headache chest pain and low back pain, symptoms began today. EKG negative for STEMI, chest x-ray negative for any acute findings, CBC CMP lipase troponin negative for any acute findings. D-dimer is normal. Patient completely refused to give us urine. Results were given to patient. He started yelling stating his back hurts and it is broken into pieces despite him sitting up straight in a chair. Informed patient I doubt his back is broken into two pieces with no injury and ambulating. Informed him I will be more than glad to do an x-ray of his lumbar spine if he is interested. He continued to demand pain medicine. Informed patient I will not give him any narcotics but his is welcome to stay he can have non narcotic for pain and a muscle relaxer. He continues to state this is not a muscle relaxer issue and needs something for pain. Informed patient we are going to give him pain medicine but it will not be a narcotic. He states that will not work for him. He started yelling stating we need to give him something for pain. He started cursing. Charge nurse was informed. He signed out AMA and left (CELIA TAYLOR APRN) Dragon Disclaimer: Dragon Disclaimer: This electronic medical record was generated, in whole or in part, using a voice recognition dictation system. (CELIA TAYLOR APRN) Departure Departure Impression: Primary Impression: Back pain Qualified Codes: M54.5 - Low back pain Additional Impressions: Chest pain Qualified Codes: R07.9 - Chest pain, unspecified Headache Qualified Codes: R51.9 - Headache, unspecified Disposition: LEFT AGAINST MEDICAL ADVICE Condition: STABLE Referrals: NO PCP (PCP) Attending Signature Attending Signature I have reviewed the PA/ELEVATOR ERECTOR's note and plan of care. I was available for consultation as needed during the patient's visit in the emergency department. I agree with the clinical impression, plan, and disposition. (BENNY JUAREZ DO) CELIA TAYLOR APRN Dec 17, 2020 11:55 BENNY JUAREZ DO Dec 17, 2020 15:57
[2020-12-17 12:01] LABS: ALBUMIN 3.7 g/dL (3.4-5.0); MAGNESIUM 1.8 mg/dL (1.8-2.4); TOTAL BILIRUBIN 0.5 mg/dL (0.2-1.0); TOTAL PROTEIN 7.5 g/dL (6.4-8.2)
--- NOTE | 2020-12-17 12:05 | RAD ---
EXAM: XR CHEST 1V 12/17/2020 11:47 AM CLINICAL INDICATION: Chest pain COMPARISON: Chest radiograph 11/24/2020 TECHNIQUE: AP upright view of the chest FINDINGS: The heart and mediastinum are normal. Lungs are well-expanded and clear. No consolidatio n, pleural effusion, or pneumothorax. Pulmonary vascularity is normal. No acute osseous abnormality. IMPRESSION: No acute cardiopulmonary abnormality. Electronically signed by: Claribel Roblero MD (12/17/2020 12:02 PM) [id number]
[2020-12-17 13:25] VITALS: BP 136/71
== END 2020-12-17 14:00 | disposition left against medical advice (07) ==
LOC: ER 10:51
DX: R07.2 Precordial pain (principal); M54.5 Low back pain; R51.9 Headache, unspecified; F41.9 Anxiety disorder, unspecified; F32.9 Major depressive disorder, single episode, unspecified; I10 Essential (primary) hypertension; F17.200 Nicotine dependence, unspecified, uncomplicated; F10.20 Alcohol dependence, uncomplicated; Y90.0 Blood alcohol level of less than 20 mg/100 ml
CPT/HCPCS: 36415; 71045; 80053; 83735; 83880; 84443; 84484; 85025; 85379; 93005; 96360; 99285; G0480; J7030

== ENCOUNTER 2021-01-10 21:35 | Emergency (ER) | payer SELFPAY ==
[~2021-01-10] VITALS: Ht 177.8 cm; Wt 72.7 kg
[2021-01-10 21:35] VITALS: BP 166/84
[2021-01-10] MEDS ORDERED: LIDOCAINE WITH 8.4% SOD BICARB 3 ML DISP.SYRIN. INJ ONE (22:00)
--- NOTE | 2021-01-10 22:00 | PHYS DOC ---
Past Medical History Past Medical History: Anxiety, Depression, Hypertension Additional Past Medical Histor: Chronic pain Past Surgical History: Other Additional Past Surgical Histo: L hand, L ankel, L shoulder Smoking Status: Current Every Day Smoker Alcohol Use: Heavy Drug Use: None General Adult EDM: Chief Complaint: LACERATION/AVULSION HPI: HPI: Patient is a 30 year old male who presents to the ED today with left middle finger laceration, patient accidentally cut himself with a knife. He is right- handed. Review of Systems: Review of Systems: Constitutional: Denies fever or chills. [] Musculoskeletal: Denies back pain or joint pain. [] Integument: Reports left middle finger laceration Neurologic: Denies headache, focal weakness or sensory changes. [] Psychiatric: Denies depression or anxiety. [] Heart Score: C/O Chest Pain: N/A Risk Factors: Risk Factors: DM, Current or recent (<one month) smoker, HTN, HLP, family history of CAD, obesity. Risk Scores: Score 0 - 3: 2.5% MACE over next 6 weeks - Discharge Home Score 4 - 6: 20.3% MACE over next 6 weeks - Admit for Clinical Observation Score 7 - 10: 72.7% MACE over next 6 weeks - Early Invasive Strategies Current Medications: Current Medications Medications (Trade) Dose Ordered Sig/[facility] Start Time Stop Time Status Last Admin Dose Admin Lidocaine HCl (Buffered Lidocaine 1%) 6 ml 1X ONCE 01/10/21 22:00 01/10/21 22:01 Allergies: Allergies: Allergies Coded Allergies Type Severity Reaction Last Updated Verified No Known Drug Allergies 01/24/20 No Physical Exam: PE: Constitutional: Well developed, well nourished, no acute distress, non-toxic appearance. [] Skin: Ventral aspect, distal end of the left middle finger with a horizontal laceration approximately 2 cm long, there is no tendon involvement. Patient able to to flex and extend the left middle finger at the MIP, PIP and DIP joints with no difficulties. Adequate radial and ulnar sensation to the left middle finger. +2 left radial pulse. Cap refill less than 2 seconds the left middle finger Back: No tenderness, no CVA tenderness. [] Extremities: No tenderness, no cyanosis, no clubbing, ROM intact, no edema. [] Neurologic: Alert and oriented X 3, normal motor function, normal sensory function, no focal deficits noted. [] Psychologic: Affect normal, judgement normal, mood normal. [] EKG: EKG: [] Radiology/Procedures: Radiology/Procedures: Laceration/Wound Repair Wound Location: Left middle finger Wound's Depth, Shape: Horizontal Wound Length (cm): Proximately 2 cm Wound Explored: clean Irrigated w/ Saline (ccs):30 Betadine Prep?: Yes Anesthesia: 1% of buffered lidocaine Volume Anesthetic (ccs): 4 cc Wound Repaired With: Ethilon Suture Size/Type: 4.0/interrupted sutures Number of Sutures: 7 Progress : Wound was covered with nonstick dressing Course & Med Decision Making: Course & Med Decision Making Pertinent Labs and Imaging studies reviewed. (See chart for details) This is a 30-year-old male patient presented to the ED today with left middle finger laceration. Patient reports tetanus vaccine 3 years ago. Laceration was cleaned and closed by me as noted in procedures. Wound care instructions and return precautions provided. Dragon Disclaimer: Dragon Disclaimer: This electronic medical record was generated, in whole or in part, using a voice recognition dictation system. Departure Departure Impression: Primary Impression: Laceration of finger of left hand Qualified Codes: S61.213A - Laceration without foreign body of left middle finger without damage to nail, initial encounter Disposition: 01 HOME / SELF CARE / HOMELESS Condition: STABLE (ERASED) Referrals: NO PCP (PCP) Follow-up with the ED in 7 days for stitches to be removed Patient Instructions: Fingertip Laceration Additional Instructions: You have a laceration to the left middle finger that was closed with stitches. Keep the area clean and dry. Please remove the dressing from the finger tomorrow evening. Keep it open to air if its not bleeding or draining. You can wash the area once or twice a day starting tomorrow evening. Apply Neosporin to the area twice a day. Monitor the area for any signs of infection including but not limited to increased redness, warmth, yellow drainage or any other concerning symptoms of infection return to the ED. Please return to the ED in 7 days for stitches to be removed CELIA TAYLOR APRN Jan 10, 2021 22:00
== END 2021-01-10 23:21 | disposition home or self-care (01) ==
LOC: ER 21:35
DX: S61.213A Laceration without foreign body of left middle finger without damage to nail, initial encounter (principal); I10 Essential (primary) hypertension; F17.200 Nicotine dependence, unspecified, uncomplicated; G89.29 Other chronic pain; W26.0XXA Contact with knife, initial encounter; Y93.89 Activity, other specified; Y92.89 Other specified places as the place of occurrence of the external cause; Y99.8 Other external cause status
CPT/HCPCS: 12001; 99283; J3490

== ENCOUNTER 2021-01-17 10:21 | Emergency (ER) | payer SELFPAY ==
[~2021-01-17] VITALS: Ht 177.8 cm; Wt 75.0 kg
--- NOTE | 2021-01-17 10:35 | PHYS DOC ---
Past Medical History Past Medical History: Anxiety, Depression, Hypertension Additional Past Medical Histor: Chronic pain Past Surgical History: Other Additional Past Surgical Histo: L hand, L ankel, L shoulder Smoking Status: Current Every Day Smoker Alcohol Use: Occasionally Drug Use: None General Adult EDM: Chief Complaint: SUTURE/STAPLE REMOVAL HPI: HPI: Patient is a 30 year old male who presents with follow-up of the third he was using a kitchen knife to cut out pizza when he sliced his pad of his left fourth finger. He received 7 sutures. He is here today for suture removal. Patient denies pain, drainage, redness, swelling. He denies any signs of infection. He denies any pain at this time. Is a history of hypertension, depression, left hand, left ankle and left shoulder surgeries. He is a current smoker. Review of Systems: Review of Systems: Constitutional: Denies fever or chills. [] Eyes: Denies change in visual acuity. [] HENT: Denies nasal congestion or sore throat. [] Respiratory: Denies cough or shortness of breath. [] Cardiovascular: Denies chest pain or edema. [] GI: Denies abdominal pain, nausea, vomiting, bloody stools or diarrhea. [] : Denies dysuria. [] Musculoskeletal: Denies back pain or joint pain. [] Integument: Denies rash. + Sutures in left fourth finger [] Neurologic: Denies headache, focal weakness or sensory changes. [] Endocrine: Denies polyuria or polydipsia. [] Lymphatic: Denies swollen glands. [] Psychiatric: Denies depression or anxiety. [] Heart Score: C/O Chest Pain: No Allergies: Allergies: Allergies Coded Allergies Type Severity Reaction Last Updated Verified No Known Drug Allergies 01/24/20 No Physical Exam: PE: Constitutional: Well developed, well nourished, no acute distress, non-toxic appearance. [] HENT: Normocephalic, atraumatic, bilateral external ears normal, oropharynx moist, no oral exudates, nose normal. [] Eyes: PERRLA, EOMI, conjunctiva normal, no discharge. [] Neck: Normal range of motion, no tenderness, supple, no stridor. [] Cardiovascular:Heart rate regular rhythm, no murmur [] Lungs & Thorax: Bilateral breath sounds clear to auscultation [] Abdomen: Bowel sounds normal, soft, no tenderness, no masses, no pulsatile masses. [] Skin: Warm, dry, no erythema, no rash. Laceration is healed together with edges approximated. No redness or drainage. No signs of infection. [] Back: No tenderness, no CVA tenderness. [] Extremities: No tenderness, no cyanosis, no clubbing, ROM intact, no edema. [] Neurologic: Alert and oriented X 3, normal motor function, normal sensory function, no focal deficits noted. [] Psychologic: Affect normal, judgement normal, mood normal. [] EKG: EKG: [] Radiology/Procedures: Radiology/Procedures: [] Course & Med Decision Making: Course & Med Decision Making Pertinent Labs and Imaging studies reviewed. (See chart for details) See HPI. Alert and oriented x4. Ambulatory steady gait. Skin pink warm and dry. No joint laxity. Full interactive project manager and strengths. Cap refill less than 2 seconds. Radial pulse strong and present. No swelling, no redness, no drainage. No signs of infection. No tenderness. 4 of the 7 sutures had already come out on their own. 3 remaining sutures are removed. [] Dragon Disclaimer: Dragon Disclaimer: This electronic medical record was generated, in whole or in part, using a voice recognition dictation system. Departure Departure Impression: Primary Impression: Encounter for removal of sutures Disposition: 01 HOME / SELF CARE / HOMELESS Condition: STABLE Referrals: NO PCP (PCP) Patient Instructions: Suture Removal Additional Instructions: Continue keep clean and covered for the next week or so. You can put Neosporin over the area if needed. Continue to watch for signs of infection. MORA FORRESTER EDGE MOLDER Jan 17, 2021 10:35
[2021-01-17 10:40] VITALS: BP 137/73
== END 2021-01-17 10:44 | disposition home or self-care (01) ==
LOC: ER 10:21
DX: S61.215D Laceration without foreign body of left ring finger without damage to nail, subsequent encounter (principal); F41.9 Anxiety disorder, unspecified; F32.9 Major depressive disorder, single episode, unspecified; I10 Essential (primary) hypertension; G89.29 Other chronic pain; F17.200 Nicotine dependence, unspecified, uncomplicated; X58.XXXD Exposure to other specified factors, subsequent encounter
CPT/HCPCS: 99281

== ENCOUNTER 2021-02-03 18:10 | Observation (INO) | payer SELFPAY ==
[~2021-02-03] VITALS: Ht 180.3 cm; Wt 71.0 kg
[~2021-02-03 18:10] MED LIST changes: +CYCL10TA19 PO; -CYCL10TA2 PO
[2021-02-03] MEDS ORDERED: OLANZapine 2.5 MG TABLET PO ONE (18:45)
[2021-02-03] MEDS ORDERED: IV NORMAL SALINE 1000ML BAG 1,000 ML IV ONE (18:45)
[2021-02-03] MEDS ORDERED: HALOPERIDOL LACTATE 5 MG/ML VIAL. IM ONE (19:15)
[2021-02-03] MEDS ORDERED: ALPRAZolam 0.5 MG TABLET PO ONE (19:15)
[2021-02-03 20:00] LABS: BASO # 0.1 x10^3/uL (0.0-0.2); BASO % 1 % (0-3); EOS # 0.1 x10^3/uL (0.0-0.7); EOS % 1 % (0-3); HEMATOCRIT 40.7 % (39.0-53.0); HEMOGLOBIN 13.9 g/dL (13.0-17.5); LYMPH # 1.1 x10^3/uL (1.0-4.8); LYMPH % 11 % (24-48); MEAN CORPUSCULAR HEMOGLOBIN 32 pg (25-35); MEAN CORPUSCULAR HGB CONC 34 g/dL (31-37); MEAN CORPUSCULAR VOLUME 93 fL (79-100); MONO # 0.6 x10^3/uL (0.0-1.1); MONO % 5 % (0-9); NEUT # 8.6 x10^3/uL (1.8-7.7); NEUT % 82 % (31-73); PLATELET COUNT 267 x10^3/uL (140-400); RED BLOOD COUNT 4.39 x10^6/uL (4.30-5.70); RED CELL DISTRIBUTION WIDTH 13.7 % (11.5-14.5); WHITE BLOOD COUNT 10.5 x10^3/uL (4.0-11.0)
[2021-02-03 20:16] LABS: CALCIUM 8.6 mg/dL (8.5-10.1); CREATININE 0.9 mg/dL (0.7-1.3); GFR 98.4; POTASSIUM 4.5 mmol/L (3.5-5.1)
--- NOTE | 2021-02-03 20:16 | EKG ---
[facility] [address] [place] [address] Test Date: 2021-02-03 Test Time: 19:55:11 Pat Name: ARACELI HEADLEY Department: Room: Gender: M User Experience Analyst: : 1990 Requested By: MORA FORRESTER Order Number: [id number] Reading MD: Reyes Figueroa Measurements Intervals [place] Rate: 135 P: 152 [place]: 158 QRS: 124 QRSD: 86 T: 145 QT: 274 QTc: 415 Interpretive Statements SINUS TACHYCARDIA LEFT POSTERIOR FASCICULAR BLOCK T ABNORMALITY IN HIGH LATERAL LEADS ABNORMAL ECG Electronically Signed On 02-05-2021 13:33:23 CDT by Reyes Figueroa
[2021-02-03 20:22] LABS: ALBUMIN 4.1 g/dL (3.4-5.0); ALBUMIN/GLOBULIN RATIO 1.2 (1.0-1.7); TOTAL BILIRUBIN 0.5 mg/dL (0.2-1.0); TOTAL PROTEIN 7.6 g/dL (6.4-8.2)
--- NOTE | 2021-02-03 20:40 | PHYS DOC ---
Past Medical History Past Medical History: Anxiety, Depression, Hypertension Additional Past Medical Histor: Chronic pain ([facility] Past Surgical History: Other Additional Past Surgical Histo: L hand, L ankel, L shoulder ([facility]) Smoking Status: Current Every Day Smoker Alcohol Use: None Drug Use: None ([facility]) General Adult EDM: Chief Complaint: ANXIETY/PANIC ATTACK HPI: HPI: Patient is a 30 year old male who presents with anxiety, paranoia and hallucinations. He states he used to take value but it has been at least a month he is gotten it. He states he took kratom today, did some xuoz-abs-muerguv herbals, drinks 12 beers daily and last drink last night and he is a smoker. He states he has been drinking daily just recently for the last couple of weeks and before that it was 3 times a week. He states the reason why he has not gotten any of his psych medications is because of money and he has no insurance. Patient is employed but will not go into further detail. Patient is shaking and stating that people are chasing him, shooting at him and something is shooting up in the ceiling. He states that somebody keeps trying to attack him. He is tachycardic upon arrival at 135. (MORA FORRESTER CLERK GUIDE) Review of Systems: Review of Systems: Constitutional: Denies fever or chills. [] Eyes: Denies change in visual acuity. [] HENT: Denies nasal congestion or sore throat. [] Respiratory: Denies cough or shortness of breath. [] Cardiovascular: Denies chest pain or edema. [] GI: Denies abdominal pain, nausea, vomiting, bloody stools or diarrhea. [] : Denies dysuria. [] Musculoskeletal: Denies back pain or joint pain. + Tremors [] Integument: Denies rash. [] Neurologic: Denies headache, focal weakness or sensory changes. [] Endocrine: Denies polyuria or polydipsia. [] Lymphatic: Denies swollen glands. [] Psychiatric: Denies depression or +anxiety. + Hallucinations [] (MORA FORRESTER CLERK GUIDE) Heart Score: C/O Chest Pain: No HEART Score for Chest Pain: HEART Score for Chest Pain Response (Comments) Value History Slighlty/Non-Suspicious 0 ECG Nonspecific Repolarizatio 1 Age < 45 0 Risk Factors 1 or 2 Risk Factors 1 Troponin < Normal Limit 0 Total 2 Risk Scores: Score 0 - 3: 2.5% MACE over next 6 weeks - Discharge Home Score 4 - 6: 20.3% MACE over next 6 weeks - Admit for Clinical Observation Score 7 - 10: 72.7% MACE over next 6 weeks - Early Invasive Strategies (MORA FORRESTER APRN) Current Medications: Current Medications Medications (Trade) Dose Ordered Sig/Barbara Start Time Stop Time Status Last Admin Dose Admin Alprazolam (Xanax) 1 mg 1X ONCE 02/03/21 19:15 02/03/21 19:16 DC 02/03/21 19:19 1 MG Haloperidol Lactate (Haldol Inj) 5 mg 1X ONCE 02/03/21 19:15 02/03/21 19:10 DC Olanzapine (ZyPREXA) 2.5 mg 1X ONCE 02/03/21 18:45 02/03/21 19:08 DC Sodium Chloride 1,000 ml @ 1,000 mls/hr 1X ONCE 02/03/21 18:45 02/03/21 19:44 DC 02/03/21 18:45 1,000 MLS/HR (MORA FORRESTER CLERK GUIDE) Allergies: Allergies: Allergies Coded Allergies Type Severity Reaction Last Updated Verified No Known Drug Allergies 01/24/20 No (MORA FORRESTER APRN) Physical Exam: PE: Constitutional: Well developed, well nourished, no acute distress, non-toxic appearance. [] HENT: Normocephalic, atraumatic, bilateral external ears normal, oropharynx moist, no oral exudates, nose normal. [] Eyes: PERRLA, EOMI, conjunctiva normal, no discharge. [] Neck: Normal range of motion, no tenderness, supple, no stridor. [] Cardiovascular:Heart rate tachycardic regular rhythm, no murmur [] Lungs & Thorax: Bilateral breath sounds clear to auscultation [] Abdomen: Bowel sounds normal, soft, no tenderness, no masses, no pulsatile masses. [] Skin: Warm, dry, no erythema, no rash. [] Back: No tenderness, no CVA tenderness. [] Extremities: No tenderness, no cyanosis, no clubbing, ROM intact, no edema. [] Neurologic: Alert and oriented X 3, normal motor function, normal sensory function, no focal deficits noted. [] Psychologic: Affect normal, judgement normal, mood normal. Anxious, hallucinating visually and audibly [] (MORA FORRESTER APRN) Current Patient Data: Labs: Laboratory Tests Test 02/03/21 19:45 White Blood Count 10.5 x10^3/uL (4.0-11.0) Red Blood Count 4.39 x10^6/uL (4.30-5.70) Hemoglobin 13.9 g/dL (13.0-17.5) Hematocrit 40.7 % (39.0-53.0) Mean Corpuscular Volume 93 fL (79-100) Mean Corpuscular Hemoglobin 32 pg (25-35) Mean Corpuscular Hemoglobin Concent 34 g/dL (31-37) Red Cell Distribution Width 13.7 % (11.5-14.5) Platelet Count 267 x10^3/uL (140-400) Neutrophils (%) (Auto) 82 % (31-73) H Lymphocytes (%) (Auto) 11 % (24-48) L Monocytes (%) (Auto) 5 % (0-9) Eosinophils (%) (Auto) 1 % (0-3) Basophils (%) (Auto) 1 % (0-3) Neutrophils # (Auto) 8.6 x10^3/uL (1.8-7.7) H Lymphocytes # (Auto) 1.1 x10^3/uL (1.0-4.8) Monocytes # (Auto) 0.6 x10^3/uL (0.0-1.1) Eosinophils # (Auto) 0.1 x10^3/uL (0.0-0.7) Basophils # (Auto) 0.1 x10^3/uL (0.0-0.2) Sodium Level 143 mmol/L (136-145) Potassium Level 4.5 mmol/L (3.5-5.1) Chloride Level 105 mmol/L (98-107) Carbon Dioxide Level 29 mmol/L (21-32) Anion Gap 9 (6-14) Blood Urea Nitrogen 16 mg/dL (8-26) Creatinine 0.9 mg/dL (0.7-1.3) Estimated GFR (Cockcroft-Gault) 98.4 BUN/Creatinine Ratio 18 (6-20) Glucose Level 102 mg/dL (70-99) H Calcium Level 8.6 mg/dL (8.5-10.1) Total Bilirubin 0.5 mg/dL (0.2-1.0) Aspartate Amino Transferase (AST) 29 U/L (15-37) Alanine Aminotransferase (ALT) 30 U/L (16-63) Alkaline Phosphatase 86 U/L (46-116) Creatine Kinase 250 U/L (39-308) Troponin I Quantitative 0.018 ng/mL (0.000-0.055) Total Protein 7.6 g/dL (6.4-8.2) Albumin 4.1 g/dL (3.4-5.0) Albumin/Globulin Ratio 1.2 (1.0-1.7) Ethyl Alcohol Level < 10 mg/dL (0-10) Laboratory Tests 02/03/21 19:45 Laboratory Tests 02/03/21 19:45 Vital Signs: Vital Signs Date Time Temp Pulse Resp B/P (MAP) Pulse Ox O2 Delivery O2 Flow Rate FiO2 02/03/21 18:47 100.0 113 20 80/73 (75) 98 Room Air 100.0 (MORA FORRESTER APRN) EKG: EK and read by Dr. Duque is sinus tachycardia at 135 and no STEMI. (MORA FORRESTER APRN) Radiology/Procedures: Radiology/Procedures: [] (MORA FORRESTER APRN) Course & Med Decision Making: Course & Med Decision Making Pertinent Labs and Imaging studies reviewed. (See chart for details) See HPI. Moo with PAC team came in to speak with the patient he does not meet criteria for admission. He has been in and out of psych facility since he was in his teens. He states he was only diagnosed with depression anxiety. He states he has been self-medicating with alcohol for his symptoms. He denies SI or HI. Patient refused Zyprexa and Xanax but did take. Information for [facility] by PAT team. After Xanax given patient is much more engaging and has stopped tremoring. He does not seem to be hallucinating anymore. Patient does deny hallucinations. States he is feeling better after the Xanax. His heart rate has also come down to 110's. His blood work is unremarkable. Patient states he does not want any help for detox from alcohol. He states he does not think he is detoxing at this time. He has never had any kind of seizures. He denies chest pain, shortness of air, headache, dizziness, abdominal pain, nausea, vomiting, fevers, numbness or tingling, focal weakness. Patient's second troponin has bumped to 0.054. Patient continues to have mid sternal sharp and slightly heavy chest pain at an 8 out of 10. I have ordered nitro sublingual. With his kratom and amphetamine use he does have a higher cardiac risk. I spoke to the patient about the risk of going home such as disability and/or . He states he understands and that he is willing to stay to have his troponin trended. 2300: Patient reported off to Dr Duque for review of chest xray and assessment of Nitroglycerin. Heparin not started at this time per Dr Duque. [] (MORA FORRESTER APRN) Course & Med Decision Making Agree with above documentation. Patient is 30-year-old male who is a methamphetamine user presents with chest pain. ECG without STEMI. Initially 8/10 chest pain. 3 nitroglycerin brought chest pain to 6/10. Troponin up to 0.054 on second troponin. Discussed with cardiology, Dr. Figueroa, who did recommend initiating a heparin drip. Patient will be admitted to telemetry for further chest pain work-up/monitoring. (MARCELL DUQUE MD) Dragon Disclaimer: Dragon Disclaimer: This electronic medical record was generated, in whole or in part, using a voice recognition dictation system. (MORA FORRESTER APRN) Departure Departure Impression: Primary Impression: Stimulant-induced anxiety disorder Additional Impressions: Anxiety Amphetamine abuse Elevated troponin Disposition: ADMITTED INPATIENT Admitting Physician: EUNICE (MORA FORRESTER APRN) Condition: STABLE Referrals: NO PCP (PCP) MORA FORRESTER APRN Feb 03, 2021 20:40 MARCELL DUQUE MD Feb 03, 2021 23:36
[2021-02-03 20:44] LABS: SALIC 1.6 mg/dL (2.8-20.0)
[2021-02-03 20:45] LABS: ACETAMIN < 2 mcg/ml (10-30)
[2021-02-03 21:08] LABS: BILIRUBIN,URINE SMALL (NEG); CLARITY,URINE CLEAR; COLOR,URINE YELLOW; NITRITE,URINE NEGATIVE (NEG); PH,URINE 6.5 (<5.0-8.0); PROTEIN,URINE 30 mg/dL (NEG-TRACE)
[2021-02-03 21:16] LABS: AMPHETAMINE/METHAMPHETAMINE POS (NEG); BARBITURATES NEG (NEG); BENZODIAZEPINES NEG (NEG); CANNABINOIDS NEG (NEG); COCAINE NEG (NEG); METHADONE NEG (NEG); OPIATES NEG (NEG); PHENCYCLIDINE NEG (NEG)
[2021-02-03 21:20] LABS: HYALINE CASTS, URINE FEW /HPF
[2021-02-03 21:21] LABS: BACTERIA,URINE 0 /HPF (0-FEW)
[2021-02-03] MEDS ORDERED: ACETAMINOPHEN 325 MG TABLET. PO PRN (22:30)
[2021-02-03] MEDS ORDERED: ASPIRIN 325 MG TABLET PO ONE (22:30)
[2021-02-03] MEDS: NITROGLYCERIN SUBLINGUAL 0.4 MG BOTTLE OF 25. SL PRN ×3 (22:43→23:15)
[2021-02-03] MEDS ORDERED: HEPARIN for IV BOLUS 10,000 UNIT/10 ML VIAL. IV ONE (23:45)
[2021-02-03] MEDS ORDERED: HEPARIN 25,000UTS/250ML PREMIX 250 ML IV PRN (23:45)
--- NOTE | 2021-02-04 00:39 | RAD ---
EXAM: XR CHEST 1V 02/03/2021 10:55 PM CLINICAL INDICATION: Chest pain COMPARISON: Chest radiograph 12/17/2020 TECHNIQUE: AP upright view of the chest FINDINGS: The heart and mediastinum are normal. Lungs are well-expanded. No consolidation, pleural effusion, or pneumothorax. No acute osseous abnormality. IMPRESSION: No acute cardiopulmonary abnormality. Electronically signed by: Claribel Roblero MD (02/04/2021 12:36 AM) [facility]
[2021-02-04] MEDS: HEPARIN for IV BOLUS 10,000 UNIT/10 ML VIAL. IV PRN ×2 (00:47→09:18)
[2021-02-04 01:05] LABS: PROTHROMBIN TIME PATIENT 13.1 SEC (11.7-14.0)
[2021-02-04 02:56] VITALS: BP 127/74
[2021-02-04] MEDS ORDERED: VALIUM10 MG PO (05:03)
[2021-02-04] MEDS ORDERED: ZOLP5TAB PO (05:16)
[2021-02-04] MEDS ORDERED: TRAZ-118 PO (05:16)
[2021-02-04] MEDS ORDERED: IBUP-1027 PO (05:16)
[2021-02-04 07:00] VITALS: BP 143/83
[2021-02-04 08:12] LABS: HEMATOCRIT 37.4 % (39.0-53.0); HEMOGLOBIN 12.6 g/dL (13.0-17.5); RED BLOOD COUNT 3.95 x10^6/uL (4.30-5.70); RED CELL DISTRIBUTION WIDTH 13.3 % (11.5-14.5); WHITE BLOOD COUNT 5.7 x10^3/uL (4.0-11.0)
[2021-02-04] MEDS ORDERED: IBUPROFEN 400 MG TABLET. PO PRN (09:15)
[2021-02-04] MEDS ORDERED: SENNOSIDES/DOCUSATE 8.6/50MG TABLET. PO SCH (09:15)
[2021-02-04] MEDS ORDERED: FAMOTIDINE 20 MG TABLET. PO SCH (09:15)
--- NOTE | 2021-02-04 09:31 | PDOC1 ---
History and Physical Date of Admission Date of Admission DATE: 02/04/21 TIME: 09:11 Identification/Chief Complaint Chief Complaint Mr. Lyle, is a 30 year old male admitted from ER last night with acute anxiety, paranoia and hallucinations. He was paranoid and shaking in the ER., He has not filled his valium due to cost, but has been smoking and drinking beer and taking meth and Kratom. In ER note, reported he drinks 12 beers the day before presentation He says he never does meth, but meth was the only thing found in his urine. I asked about his mental health, he says he felt well on Valium 10 mg, was taking 4 years ago, but has stopped taking, He tells me" this isnt my mental health" and I asked what it is, then, and he says "I'm gonna keep that to myself" - I offered to help if he was willing was worked up in ER for tachycardia, mild troponin increase found Past Medical History Cardiovascular: No pertinent hx Pulmonary: No pertinent hx GI: No pertinent hx Heme/Onc: No pertinent hx Hepatobiliary: No pertinent hx Psych: Anxiety ENT: No pertinent hx Renal/: No pertinent hx Social History Smoke: 1 pack per day ALCOHOL: heavy Drugs: Other (Kratom, denies meth) Current Problem List Problem List Problems Medical Problems: (1) Amphetamine abuse Status: Acute (2) Anxiety Status: Acute (3) Elevated troponin Status: Acute (4) Stimulant-induced anxiety disorder Status: Acute Current Medications Current Medications Current Medications Sodium Chloride 1,000 ml @ 1,000 mls/hr 1X ONCE IV Last administered on at 18:45; Start 02/03/21 at 18:45; Stop 02/03/21 at 19:44; Status DC Olanzapine (ZyPREXA) 2.5 mg 1X ONCE PO ; Start 02/03/21 at 18:45; Stop 02/03/21 at 19:08; Status DC Haloperidol Lactate (Haldol Inj) 5 mg 1X ONCE IM ; Start 02/03/21 at 19:15; Stop 02/03/21 at 19:10; Status DC Alprazolam (Xanax) 1 mg 1X ONCE PO Last administered on 02/03/21at 19:19; Start 02/03/21 at 19:15; Stop 02/03/21 at 19:16; Status DC Acetaminophen (Tylenol) 650 mg PRN Q4HRS PRN PO FEVER > 100.3'F; Start 02/03 at 22:30; Stop 02/04/21 at 22:29 Aspirin (Teddy Aspirin) 325 mg 1X ONCE PO Last administered on 02/03/21at 22:41; Start 02/03/21 at 22:30; Stop 02/03/21 at 22:31; Status DC Nitroglycerin (Nitrostat) 0.4 mg PRN Q5MIN PRN SL CHEST PAIN Last administered on 02/03/21at 23:15; Start 02/03/21 at 22:45 Heparin Sodium (Porcine) (Heparin Sodium) 4,000 unit 1X ONCE IV ; Start 1 at 23:45; Stop 02/03/21 at 23:46; Status DC Heparin Sodium/ Dextrose 250 ml @ 8.76 mls/hr CONT PRN IV PER PROTOCOL Last administered on 02/04/21at 00:46; Start 02/03/21 at 23:45 Heparin Sodium (Porcine) (Heparin Sodium) 1,850 unit PRN Q6HRS PRN IV FOR UFH LEVEL LESS THAN 0.2 Last administered on 02/04/21at 00:47; Start 02/03/21 at 23:45 Active Scripts Active Benadryl (Diphenhydramine Hcl) 25 Mg Capsule 1 Cap PO Q6HRS Famotidine 20 Mg Tablet 20 Mg PO DAILY Stool Soft-Stimulant Lax Tab (Sennosides/Docusate Sodium) 1 Each Tablet 1 Tab PO BID 30 Days Reported Ibuprofen 400 Mg Tablet 400 Mg PO PRN Q6HRS PRN Ambien (Zolpidem Tartrate) 5 Mg Tablet 5 Mg PO PRN QHS PRN Trazodone Hcl 50 Mg Tablet 50 Mg PO HS Valium (Diazepam) 10 Mg Tablet 10 Mg PO TID Allergies Allergies: Coded Allergies: No Known Drug Allergies (Unverified , 01/24/20) ROS General: No: Chills, Night Sweats, Fatigue, Malaise, Appetite, Other PSYCHOLOGICAL ROS: No: Anxiety, Behavioral Disorder, Concentration difficultie, Decreased libido, Depression, Disorientation, Hallucinations, Hostility, Irritablity, Memory difficulties, Mood Swings, Obsessive thoughts, Physical abuse, Sexual abuse, Sleep disturbances, Suicidal ideation, Other Eyes: No Blurry vision, No Decreased vision, No Double vision, No Dry eyes, No Excessive tearing, No Eye Pain, No Itchy Eyes, No Loss of vision, No Photophobia, No Scotomata, No Uses contacts, No Uses glasses, No Other HEENT: No: Heacaches, Visual Changes, Hearing change, Nasal congestion, Nasal discharge, Oral lesions, Sinus pain, Sore Throat, Epistaxis, Sneezing, Snoring, Tinnitus, Vertigo, Vocal changes, Other Respiratory: No: Cough, Hemoptysis, Orthopnea, Pleuritic Pain, Shortness of breath, SOB with excertion, Sputum Changes, Stridor, Tachypnea, Wheezing, Other Cardiovascular: No Chest Pain, No Palpitations, No Orthopnea, No Paroxysmal Noc. Dyspnea, No Edema, No Lt Headedness, No Other Gastrointestinal: No Nausea, No Vomiting, No Abdominal Pain, No Diarrhea, No Constipation, No Melena, No Hematochezia, No Other Genitourinary: No Dysuria, No Frequency, No Incontinence, No Hematuria, No Retention, No Discharge, No Urgency, No Pain, No Flank Pain, No Other, No , No , No , No , No , No , No Musculoskeletal: No Gait Disturbance, No Joint Pain, No Joint Stiffness, No Joint Swelling, No Muscle Pain, No Muscular Weakness, No Pain In:, No Swelling In:, No Other Neurological: No Behavorial Changes, No Bowel/Bladder ControlChng, No Confusion, No Dizziness, No Gait Disturbance, No Headaches, No Impaired Coord/balance, No Memory Loss, No Numbness/Tingling, No Seizures, No Speech Problems, No Tremors, No Visual Changes, No Weakness, No Other Skin: No Dry Skin, No Eczema, No Hair Changes, No Lumps, No Mole Changes, No Mottling, No Nail Changes, No Pruritus, No Rash, No Skin Lesion Changes, No Other, No Acne Physical Exam General: Alert, mild distress, Other (evasive) HEENT: Atraumatic, PERRLA Lungs: Clear to auscultation Abdomen: Normal bowel sounds Rectal Exam: deferred Extremities: No edema Neuro: Other Psych/Mental Status: Other (flat affect, evasive, wears hat low over eyes during interview) Vitals Vitals Vital Signs Date Time Temp Pulse Resp B/P (MAP) Pulse Ox O2 Delivery O2 Flow Rate FiO2 02/04/21 02:56 98.0 90 22 127/74 (91) 98 Room Air 98.0 02/04/21 01:00 97.0 Labs Labs Laboratory Tests Test 02/03/21 19:45 02/03/21 21:00 02/03/21 21:39 02/04/21 00:45 White Blood Count 10.5 x10^3/uL (4.0-11.0) Red Blood Count 4.39 x10^6/uL (4.30-5.70) Hemoglobin 13.9 g/dL (13.0-17.5) Hematocrit 40.7 % (39.0-53.0) Mean Corpuscular Volume 93 fL (79-100) Mean Corpuscular Hemoglobin 32 pg (25-35) Mean Corpuscular Hemoglobin Concent 34 g/dL (31-37) Red Cell Distribution Width 13.7 % (11.5-14.5) Platelet Count 267 x10^3/uL (140-400) Neutrophils (%) (Auto) 82 % (31-73) Lymphocytes (%) (Auto) 11 % (24-48) Monocytes (%) (Auto) 5 % (0-9) Eosinophils (%) (Auto) 1 % (0-3) Basophils (%) (Auto) 1 % (0-3) Neutrophils # (Auto) 8.6 x10^3/uL (1.8-7.7) Lymphocytes # (Auto) 1.1 x10^3/uL (1.0-4.8) Monocytes # (Auto) 0.6 x10^3/uL (0.0-1.1) Eosinophils # (Auto) 0.1 x10^3/uL (0.0-0.7) Basophils # (Auto) 0.1 x10^3/uL (0.0-0.2) Sodium Level 143 mmol/L (136-145) Potassium Level 4.5 mmol/L (3.5-5.1) Chloride Level 105 mmol/L (98-107) Carbon Dioxide Level 29 mmol/L (21-32) Anion Gap 9 (6-14) Blood Urea Nitrogen 16 mg/dL (8-26) Creatinine 0.9 mg/dL (0.7-1.3) Estimated GFR (Cockcroft-Gault) 98.4 BUN/Creatinine Ratio 18 (6-20) Glucose Level 102 mg/dL (70-99) Calcium Level 8.6 mg/dL (8.5-10.1) Total Bilirubin 0.5 mg/dL (0.2-1.0) Aspartate Amino Transf (AST/SGOT) 29 U/L (15-37) Alanine Aminotransferase (ALT/SGPT) 30 U/L (16-63) Alkaline Phosphatase 86 U/L (46-116) Creatine Kinase 250 U/L (39-308) Troponin I Quantitative 0.018 ng/mL (0.000-0.055) 0.054 ng/mL (0.000-0.055) 0.068 ng/mL (0.000-0.055) Total Protein 7.6 g/dL (6.4-8.2) Albumin 4.1 g/dL (3.4-5.0) Albumin/Globulin Ratio 1.2 (1.0-1.7) Salicylates Level 1.6 mg/dL (2.8-20.0) Salicylate Last Dose Date Unknown Salicylate Last Dose Time Unknown Acetaminophen Level < 2 mcg/ml (10-30) Acetaminophen Last Dose Date Unknown Acetaminophen Last Dose Time Unknown Ethyl Alcohol Level < 10 mg/dL (0-10) Urine Collection Type Unknown Urine Color Yellow Urine Clarity Clear Urine pH 6.5 (<5.0-8.0) Urine Specific [place] >=1.030 (1.000-1.030) Urine Protein 30 mg/dL (NEG-TRACE) Urine Glucose (UA) Negative mg/dL (NEG) Urine Ketones (Stick) Negative mg/dL (NEG) Urine Blood Negative (NEG) Urine Nitrite Negative (NEG) Urine Bilirubin Small (NEG) Urine Urobilinogen Dipstick 1.0 mg/dL (0.2 mg/dL) Urine Leukocyte Esterase Negative (NEG) Urine RBC 1-2 /HPF (0-2) Urine WBC 1-4 /HPF (0-4) Urine Squamous Epithelial Cells Few /LPF Urine Bacteria 0 /HPF (0-FEW) Urine Hyaline Casts Few /HPF Urine Mucus Mod /LPF Urine Opiates Screen Neg (NEG) Urine Methadone Screen Neg (NEG) Urine Barbiturates Neg (NEG) Urine Phencyclidine Screen Neg (NEG) Urine Amphetamine/Methamphetamine Pos (NEG) Urine Benzodiazepines Screen Neg (NEG) Urine Cocaine Screen Neg (NEG) Urine Cannabinoids Screen Neg (NEG) Urine Ethyl Alcohol Neg (NEG) Prothrombin Time 13.1 SEC (11.7-14.0) Prothromb Time International Ratio 1.0 (0.8-1.1) Activated Partial Thromboplast Time 26 SEC (24-38) Test 02/04/21 07:00 White Blood Count 5.7 x10^3/uL (4.0-11.0) Red Blood Count 3.95 x10^6/uL (4.30-5.70) Hemoglobin 12.6 g/dL (13.0-17.5) Hematocrit 37.4 % (39.0-53.0) Mean Corpuscular Volume 95 fL (79-100) Mean Corpuscular Hemoglobin 32 pg (25-35) Mean Corpuscular Hemoglobin Concent 34 g/dL (31-37) Red Cell Distribution Width 13.3 % (11.5-14.5) Platelet Count 208 x10^3/uL (140-400) Heparin Anti-Xa Act, Unfractionated 0.12 IU/mL (0.30-0.70) Laboratory Tests Test 02/03/21 19:45 02/03/21 21:00 02/03/21 21:39 02/04/21 00:45 White Blood Count 10.5 x10^3/uL (4.0-11.0) Red Blood Count 4.39 x10^6/uL (4.30-5.70) Hemoglobin 13.9 g/dL (13.0-17.5) Hematocrit 40.7 % (39.0-53.0) Mean Corpuscular Volume 93 fL (79-100) Mean Corpuscular Hemoglobin 32 pg (25-35) Mean Corpuscular Hemoglobin Concent 34 g/dL (31-37) Red Cell Distribution Width 13.7 % (11.5-14.5) Platelet Count 267 x10^3/uL (140-400) Neutrophils (%) (Auto) 82 % (31-73) Lymphocytes (%) (Auto) 11 % (24-48) Monocytes (%) (Auto) 5 % (0-9) Eosinophils (%) (Auto) 1 % (0-3) Basophils (%) (Auto) 1 % (0-3) Neutrophils # (Auto) 8.6 x10^3/uL (1.8-7.7) Lymphocytes # (Auto) 1.1 x10^3/uL (1.0-4.8) Monocytes # (Auto) 0.6 x10^3/uL (0.0-1.1) Eosinophils # (Auto) 0.1 x10^3/uL (0.0-0.7) Basophils # (Auto) 0.1 x10^3/uL (0.0-0.2) Sodium Level 143 mmol/L (136-145) Potassium Level 4.5 mmol/L (3.5-5.1) Chloride Level 105 mmol/L (98-107) Carbon Dioxide Level 29 mmol/L (21-32) Anion Gap 9 (6-14) Blood Urea Nitrogen 16 mg/dL (8-26) Creatinine 0.9 mg/dL (0.7-1.3) Estimated GFR (Cockcroft-Gault) 98.4 BUN/Creatinine Ratio 18 (6-20) Glucose Level 102 mg/dL (70-99) Calcium Level 8.6 mg/dL (8.5-10.1) Total Bilirubin 0.5 mg/dL (0.2-1.0) Aspartate Amino Transf (AST/SGOT) 29 U/L (15-37) Alanine Aminotransferase (ALT/SGPT) 30 U/L (16-63) Alkaline Phosphatase 86 U/L (46-116) Creatine Kinase 250 U/L (39-308) Troponin I Quantitative 0.018 ng/mL (0.000-0.055) 0.054 ng/mL (0.000-0.055) 0.068 ng/mL (0.000-0.055) Total Protein 7.6 g/dL (6.4-8.2) Albumin 4.1 g/dL (3.4-5.0) Albumin/Globulin Ratio 1.2 (1.0-1.7) Salicylates Level 1.6 mg/dL (2.8-20.0) Salicylate Last Dose Date Unknown Salicylate Last Dose Time Unknown Acetaminophen Level < 2 mcg/ml (10-30) Acetaminophen Last Dose Date Unknown Acetaminophen Last Dose Time Unknown Ethyl Alcohol Level < 10 mg/dL (0-10) Urine Collection Type Unknown Urine Color Yellow Urine Clarity Clear Urine pH 6.5 (<5.0-8.0) Urine Specific [place] >=1.030 (1.000-1.030) Urine Protein 30 mg/dL (NEG-TRACE) Urine Glucose (UA) Negative mg/dL (NEG) Urine Ketones (Stick) Negative mg/dL (NEG) Urine Blood Negative (NEG) Urine Nitrite Negative (NEG) Urine Bilirubin Small (NEG) Urine Urobilinogen Dipstick 1.0 mg/dL (0.2 mg/dL) Urine Leukocyte Esterase Negative (NEG) Urine RBC 1-2 /HPF (0-2) Urine WBC 1-4 /HPF (0-4) Urine Squamous Epithelial Cells Few /LPF Urine Bacteria 0 /HPF (0-FEW) Urine Hyaline Casts Few /HPF Urine Mucus Mod /LPF Urine Opiates Screen Neg (NEG) Urine Methadone Screen Neg (NEG) Urine Barbiturates Neg (NEG) Urine Phencyclidine Screen Neg (NEG) Urine Amphetamine/Methamphetamine Pos (NEG) Urine Benzodiazepines Screen Neg (NEG) Urine Cocaine Screen Neg (NEG) Urine Cannabinoids Screen Neg (NEG) Urine Ethyl Alcohol Neg (NEG) Prothrombin Time 13.1 SEC (11.7-14.0) Prothromb Time International Ratio 1.0 (0.8-1.1) Activated Partial Thromboplast Time 26 SEC (24-38) Test 02/04/21 07:00 White Blood Count 5.7 x10^3/uL (4.0-11.0) Red Blood Count 3.95 x10^6/uL (4.30-5.70) Hemoglobin 12.6 g/dL (13.0-17.5) Hematocrit 37.4 % (39.0-53.0) Mean Corpuscular Volume 95 fL (79-100) Mean Corpuscular Hemoglobin 32 pg (25-35) Mean Corpuscular Hemoglobin Concent 34 g/dL (31-37) Red Cell Distribution Width 13.3 % (11.5-14.5) Platelet Count 208 x10^3/uL (140-400) Heparin Anti-Xa Act, Unfractionated 0.12 IU/mL (0.30-0.70) VTE Prophylaxis Ordered VTE Prophylaxis Devices: No VTE Pharmacological Prophylaxi: Yes (heparin gtt) Assessment/Plan Assessment/Plan Meth intoxication, maybe unknown to him, he thinks he took Kratom only,. Anxiety disorder acute toxic encephalopathy with hallucinations on admit, SIRS tachcardia mild elevation of troponin, CV consulted, pt has refused PO meds, probable low utility of intervention Justifications for Admission Other Justification MATTI CABRALES MD Feb 04, 2021 09:31
[2021-02-04 11:00] VITALS: BP 130/80
[2021-02-04] MEDS: diphenhydrAMINE HCL 25 MG CAPSULE PO SCH ×2 (11:09→17:04)
--- NOTE | 2021-02-04 11:38 | NUR ---
SS following for discharge planning. SS reviewed pt chart and discussed with pt RN. Pt is from home and is currently on room air. Cardiology consulted and pt on Heparin drip. Pt positive for meth and admitted to using Kratom in ER. ETOH as well. Per report, pt having delusions and hallucinations. [facility] team referral made for substance use and behaviors. Mao from [facility] team coming to meet with pt. Self pay. Med Assist following. SS will continue to follow for discharge planning. Addendum: 02/04/21 at 1313 by MAYO CLARK SS Mao from [facility] team met with pt and provided pt with resources for [facility] and [facility]. Pt also given referrals to [facility] and [facility]. Pt cleared by [facility] team at this time.
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
[2021-02-04 15:00] VITALS: BP 138/82
--- NOTE | 2021-02-04 17:09 | CARD ---
MR#: [id number] Date of Study: 02/04/2021 Ordering Physician: MERLY PATTEN, Referring Physician: MERLY PATTEN, [place]: Azar Holly [facility] APPROVED REPORT EXAM: LIMITED Two-dimensional and M-mode echocardiogram with Doppler and color Doppler. Other Information Quality : GoodHR: 58bpm Rhythm : NSR INDICATION Dyspnea Elevated Troponin RISK FACTORS Etoh abuse 2D DIMENSIONS Left Atrium(2D)3.3 (1.6-4.0cm)IVSd0.8 (0.7-1.1cm) Aortic Root(2D)3.0 (2.0-3.7cm)LVDd5.6 (3.9-5.9cm) PWd0.8 (0.7-1.1cm)LVDs3.5 (2.5-4.0cm) FS (%) 37.0 %SV102.9 ml LVEF(%)66.3 (>50%) Tricuspid Valve TR P. Omflonnd382gy/sTR Peak Gr.10mmHg LEFT VENTRICLE The left ventricle is normal size. There is normal left ventricular wall thickness. The left ventricu lar systolic function is normal and the ejection fraction is within normal range. EF 55% There is nor mal LV segmental wall motion. No left ventricle thrombus noted on this study. There is no ventricular septal defect visualized. There is no left ventricular aneurysm. There is no mass noted in the left ventricle. RIGHT VENTRICLE The right ventricle is normal size. There is normal right ventricular wall thickness. The right ventr icular systolic function is normal. ATRIA The left atrium size is normal. The right atrium size is normal. The interatrial septum is intact wit h no evidence for an atrial septal defect or patent foramen ovale as noted on 2-D or Doppler imaging. AORTIC VALVE The aortic valve is normal in structure and function. Doppler and Color Flow revealed no significant aortic regurgitation. There is no significant aortic valvular stenosis. There is no aortic valvular v egetation. MITRAL VALVE The mitral valve is normal in structure and function. There is no evidence of mitral valve prolapse. There is no mitral valve stenosis. Doppler and Color Flow revealed no mitral valve regurgitation note d. TRICUSPID VALVE The tricuspid valve is normal in structure and function. Doppler and Color Flow revealed trace tricus pid regurgitation. There is no tricuspid valve prolapse or vegetation. There is no tricuspid valve st enosis. GREAT VESSELS The aortic root is normal in size. The ascending aorta is normal in size. The IVC is normal in size a nd collapses >50% with inspiration. PERICARDIAL EFFUSION There is no pleural effusion. There is no evidence of significant pericardial effusion. Critical Notification Critical Value: No <Conclusion> The left ventricular systolic function is normal and the ejection fraction is within normal range. EF 55% There is normal LV segmental wall motion. Signed by : Chente Morales, Electronically Approved : 02/04/2021 17:09:14
[2021-02-04] MEDS ORDERED: traZODone 50 MG TABLET. PO SCH (21:00)
--- NOTE | 2021-02-05 20:03 | PDOC3 ---
Discharge Summary Visit Information Date of Admission: Feb 03, 2021 Date of Discharge: Feb 04, 2021 Final Diagnosis Meth intoxication, maybe unknown to him, he thinks he took Kratom only,. Anxiety disorder acute toxic encephalopathy with hallucinations on admit, SIRS tachcardia mild elevation of troponin, CV consulted, Problems Medical Problems: (1) Amphetamine abuse Status: Acute (2) Anxiety Status: Acute (3) Elevated troponin Status: Acute (4) Stimulant-induced anxiety disorder Status: Acute Brief Hospital Course Allergies Allergies Coded Allergies Type Severity Reaction Last Updated Verified No Known Drug Allergies 01/24/20 No Vital Signs Vital Signs Date Time Temp Pulse Resp B/P (MAP) Pulse Ox O2 Delivery O2 Flow Rate FiO2 02/04/21 15:00 98.1 60 18 138/82 (100) 99 Room Air 98.1 Lab Results Laboratory Tests Test 02/03/21 21:00 02/03/21 21:39 02/04/21 00:45 02/04/21 07:00 Urine Collection Type Unknown Urine Color Yellow Urine Clarity Clear Urine pH 6.5 (<5.0-8.0) Urine Specific [place] >=1.030 (1.000-1.030) Urine Protein 30 mg/dL (NEG-TRACE) Urine Glucose (UA) Negative mg/dL (NEG) Urine Ketones (Stick) Negative mg/dL (NEG) Urine Blood Negative (NEG) Urine Nitrite Negative (NEG) Urine Bilirubin Small (NEG) Urine Urobilinogen Dipstick 1.0 mg/dL (0.2 mg/dL) Urine Leukocyte Esterase Negative (NEG) Urine RBC 1-2 /HPF (0-2) Urine WBC 1-4 /HPF (0-4) Urine Squamous Epithelial Cells Few /LPF Urine Bacteria 0 /HPF (0-FEW) Urine Hyaline Casts Few /HPF Urine Mucus Mod /LPF Urine Opiates Screen Neg (NEG) Urine Methadone Screen Neg (NEG) Urine Barbiturates Neg (NEG) Urine Phencyclidine Screen Neg (NEG) Urine Amphetamine/Methamphetamine Pos (NEG) Urine Benzodiazepines Screen Neg (NEG) Urine Cocaine Screen Neg (NEG) Urine Cannabinoids Screen Neg (NEG) Urine Ethyl Alcohol Neg (NEG) Troponin I Quantitative 0.054 ng/mL (0.000-0.055) 0.068 ng/mL (0.000-0.055) Prothrombin Time 13.1 SEC (11.7-14.0) Prothromb Time International Ratio 1.0 (0.8-1.1) Activated Partial Thromboplast Time 26 SEC (24-38) White Blood Count 5.7 x10^3/uL (4.0-11.0) Red Blood Count 3.95 x10^6/uL (4.30-5.70) Hemoglobin 12.6 g/dL (13.0-17.5) Hematocrit 37.4 % (39.0-53.0) Mean Corpuscular Volume 95 fL (79-100) Mean Corpuscular Hemoglobin 32 pg (25-35) Mean Corpuscular Hemoglobin Concent 34 g/dL (31-37) Red Cell Distribution Width 13.3 % (11.5-14.5) Platelet Count 208 x10^3/uL (140-400) Heparin Anti-Xa Act, Unfractionated 0.12 IU/mL (0.30-0.70) Brief Hospital Course Mr. Lyle is a 30 old male, admit intox, mult substances, odd behavior, paranoia and hallucinations. he felt better in AM after sobering up from [employer] ECHO <Conclusion> The left ventricular systolic function is normal and the ejection fraction is within normal range. EF 55% There is normal LV segmental wall motion. Discharge Information Condition at Discharge: Improved Follow Up: Weeks Disposition/Orders: D/C to Home Scheduled Diphenhydramine Hcl (Benadryl) 25 Mg Capsule, 1 CAP PO Q6HRS, #20 Ref 0 Prescribed by: Monse Odell APRN on 11/23/201817 Last Action: Continued on 02/04/21908 by MATTI CABRALES Discontinued Medications Diazepam (Valium) 10 Mg Tablet, 10 MG PO TID for ANXIETY, (Reported) Entered as Reported by: Maria T Juan on 02/04/21 050 Last Action: Reviewed on 02/04/21516 by Maria T Juan Famotidine (Famotidine) 20 Mg Tablet, 20 MG PO DAILY, #7 Prescribed by: Monse Odell APRN on 11/23/201817 Last Action: Continued on 02/04/21908 by MATTI CABRALES Ibuprofen (Ibuprofen) 400 Mg Tablet, 400 MG PO PRN Q6HRS PRN for INFLAMMATION, (Reported) Entered as Reported by: Maria T Juan on 02/04/21515 Last Action: Continued on 02/04/21908 by MATTI CABRALES Sennosides/Docusate Sodium (Stool Soft-Stimulant Lax Tab) 1 Each Tablet, 1 TAB PO BID for constipation for 30 Days, #60 Prescribed by: JODEE GR MD on 11/18/20848 Last Action: Continued on 02/04/21908 by MATTI CABRALES Trazodone Hcl (Trazodone Hcl) 50 Mg Tablet, 50 MG PO HS for SLEEP, (Reported) Entered as Reported by: Maria T Juan on 02/04/21515 Last Action: Continued on 02/04/21908 by MATTI CABRALES Zolpidem Tartrate (Ambien) 5 Mg Tablet, 5 MG PO PRN QHS PRN for INSOMNIA, Ref 0 (Reported) Entered as Reported by: Maria T Juan on 02/04/21515 Last Action: Reviewed on 02/04/21516 by Maria T Juan Patient Instructions Patient Instructions A/D same Justicifation of Admission Dx: Justifications for Admission: Justification of Admission Dx: No (obs) MATTI CABRALES MD Feb 05, 2021 20:02
== END 2021-02-04 19:00 | disposition home or self-care (01) ==
LOC: ER 18:10 → 6 SOUTH 22:29
PROVIDERS: ADMIT Family Medicine; ATTEND Family Medicine
DX: F15.10 Other stimulant abuse, uncomplicated (principal); R65.10 Systemic inflammatory response syndrome (SIRS) of non-infectious origin without acute organ dysfunction; F41.9 Anxiety disorder, unspecified; R77.8 Other specified abnormalities of plasma proteins; F41.8 Other specified anxiety disorders; R00.0 Tachycardia, unspecified; F10.129 Alcohol abuse with intoxication, unspecified; G92.9 Unspecified toxic encephalopathy; F17.210 Nicotine dependence, cigarettes, uncomplicated; F22 Delusional disorders; F32.A Depression, unspecified; F41.0 Panic disorder [episodic paroxysmal anxiety]; F43.10 Post-traumatic stress disorder, unspecified; I10 Essential (primary) hypertension; I24.8 Other forms of acute ischemic heart disease; F15.129 Other stimulant abuse with intoxication, unspecified; Z79.899 Other long term (current) drug therapy
CPT/HCPCS: 36415; 71045; 80053; 80307; 80329; 81001; 82550; 84484; 85025; 85027; 85520; 85610; 85730; 93005; 93308; 96365; 96366; 96376; 99285; G0378; G0480; J1644; J7030; G0379

== ENCOUNTER 2021-02-23 17:30 | Emergency (ER) | payer SELFPAY ==
[~2021-02-23] VITALS: Ht 177.8 cm; Wt 72.7 kg
[~2021-02-23 17:30] MED LIST changes: +IBUP-1027 PO; +TRAZ-118 PO; +VALIUM10 MG PO; +ZOLP5TAB PO
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
[2021-02-23] MEDS ORDERED: ONDANSETRON PF 4 MG/2 ML VIAL. IVP ONE (19:15)
[2021-02-23] MEDS ORDERED: fentaNYL PF VIAL 100 MCG/2 ML VIAL IVP ONE (19:15)
[2021-02-23] MEDS ORDERED: IV NORMAL SALINE 1000ML BAG 1,000 ML IV ONE (19:30)
[2021-02-23 20:31] LABS: BASO # 0.1 x10^3/uL (0.0-0.2); BASO % 1 % (0-3); EOS # 0.2 x10^3/uL (0.0-0.7); EOS % 3 % (0-3); HEMATOCRIT 39.1 % (39.0-53.0); HEMOGLOBIN 13.3 g/dL (13.0-17.5); LYMPH # 2.1 x10^3/uL (1.0-4.8); LYMPH % 31 % (24-48); MEAN CORPUSCULAR HEMOGLOBIN 32 pg (25-35); MEAN CORPUSCULAR HGB CONC 34 g/dL (31-37); MEAN CORPUSCULAR VOLUME 94 fL (79-100); MONO # 0.6 x10^3/uL (0.0-1.1); MONO % 9 % (0-9); NEUT # 3.8 x10^3/uL (1.8-7.7); NEUT % 56 % (31-73); PLATELET COUNT 284 x10^3/uL (140-400); RED BLOOD COUNT 4.17 x10^6/uL (4.30-5.70); RED CELL DISTRIBUTION WIDTH 13.4 % (11.5-14.5); WHITE BLOOD COUNT 6.8 x10^3/uL (4.0-11.0)
[2021-02-23 20:44] LABS: CALCIUM 8.2 mg/dL (8.5-10.1); CREATININE 0.8 mg/dL (0.7-1.3); GFR 112.8; POTASSIUM 3.9 mmol/L (3.5-5.1)
[2021-02-23 20:49] LABS: ALBUMIN 3.7 g/dL (3.4-5.0); ALBUMIN/GLOBULIN RATIO 1.2 (1.0-1.7); MAGNESIUM 2.1 mg/dL (1.8-2.4); PHOSPHORUS 4.4 mg/dL (2.6-4.7); TOTAL BILIRUBIN 0.4 mg/dL (0.2-1.0); TOTAL PROTEIN 6.7 g/dL (6.4-8.2)
[2021-02-23 21:10] LABS: BILIRUBIN,URINE NEGATIVE (NEG); CLARITY,URINE CLEAR; COLOR,URINE YELLOW; NITRITE,URINE NEGATIVE (NEG); PH,URINE 7.5 (<5.0-8.0); PROTEIN,URINE NEGATIVE (NEG-TRACE); UROBILINOGEN,URINE 0.2 mg/dL (0.2 mg/dL)
[2021-02-23 21:15] LABS: BACTERIA,URINE 0 /HPF (0-FEW); WBC,URINE 0 /HPF (0-4)
[2021-02-23] MEDS ORDERED: IOHEXOL 300 MG/ML 100ML VIAL. IV ONE (21:15)
[2021-02-23] MEDS ORDERED: CONTRAST GIVEN. MC PRN (21:15)
[2021-02-23 21:16] LABS: AMPHETAMINE/METHAMPHETAMINE NEG (NEG); BARBITURATES NEG (NEG); BENZODIAZEPINES NEG (NEG); CANNABINOIDS NEG (NEG); COCAINE NEG (NEG); METHADONE NEG (NEG); OPIATES NEG (NEG); PHENCYCLIDINE NEG (NEG)
--- NOTE | 2021-02-23 21:54 | RAD ---
EXAM: CT ABDOMEN/PELVIS WITH CONTRAST. HISTORY: Abdominal pain. TECHNIQUE: Computed tomography of the abdomen and pelvis was performed after the intravenous administ ration of iodinated contrast. One or more of the following individualized dose reduction techniques w ere utilized for this examination: 1. Automated exposure control. 2. Adjustment of the mA and/or kV according to patient size. 3. Use of iterative reconstruction technique. COMPARISON: 11/16/2020. FINDINGS: Lung windows through the visualized portions of the bases reveal mild atelectasis. Bone win dows reveal no suspicious lesions. The liver, gallbladder, spleen, adrenal glands, pancreas and kidneys are unremarkable. There are no p athologically enlarged lymph nodes. Stool throughout the colon is consistent with constipation. There is no evidence of appendicitis. Th ere is no small bowel obstruction. IMPRESSION: 1. Correlate for mild constipation. No acute intra-abdominal findings. Electronically signed by: Melanie Almanza MD (02/23/2021 9:52 PM) [id number]
[2021-02-23] MEDS ORDERED: KETOROLAC 15 MG/ML VIAL. IVP ONE (22:00)
[2021-02-23] MEDS ORDERED: MAGNESIUM CITRATE 296 ML SOLUTION. PO ONE (22:45)
[2021-02-23] MEDS ORDERED: LIDO:MAALOX 1:1 20 ML SINGLE DOSE. SWSW ONE (22:45)
[2021-02-23 23:00] VITALS: BP 138/86
--- NOTE | 2021-02-24 03:12 | EKG ---
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
== END 2021-02-23 23:20 | disposition home or self-care (01) ==
LOC: ER 17:30
DX: K59.00 Constipation, unspecified (principal); I10 Essential (primary) hypertension; G89.29 Other chronic pain; F17.200 Nicotine dependence, unspecified, uncomplicated
CPT/HCPCS: 36415; 74177; 80053; 80307; 81001; 83690; 83735; 84100; 84484; 85025; 93005; 96361; 96374; 96375; 99285; G0480; J1885; J2405; J3010; J7030; Q9967

== ENCOUNTER 2021-03-26 02:21 | Emergency (ER) | payer SELFPAY | END 2021-03-26 03:58 | disposition left against medical advice (07) | LOC: ER 02:21 | DX: M54.9 Dorsalgia, unspecified (principal); Z53.21 Procedure and treatment not carried out due to patient leaving prior to being seen by health care provider ==

== ENCOUNTER 2021-04-09 13:42 | Emergency (ER) | payer SELFPAY ==
[~2021-04-09] VITALS: Ht 177.8 cm; Wt 72.7 kg
[2021-04-09] MEDS ORDERED: fentaNYL PF VIAL 100 MCG/2 ML VIAL IVP ONE (14:15)
[2021-04-09] MEDS ORDERED: FAMOTIDINE 20 MG/2 ML VIAL IVP ONE (14:15)
[2021-04-09] MEDS ORDERED: IV NORMAL SALINE 1000ML BAG 1,000 ML IV SCH (14:15)
--- NOTE | 2021-04-09 14:21 | PHYS DOC ---
Past Medical History Past Medical History: Anxiety, Depression, Hypertension Additional Past Medical Histor: Chronic pain (MORA FORRESTER APRN) Past Surgical History: Other Additional Past Surgical Histo: L hand,L ankle,L shoulder (MORA FORRESTER APRN) Smoking Status: Never Smoker Alcohol Use: None Drug Use: None (MORA FORRESTER APRN) General Adult EDM: Chief Complaint: ABDOMINAL PAIN HPI: HPI: Patient is a 30 year old male who presents with last night began having right upper quadrant sharp/dull pain. He states the last 2 weeks he has been drinking a sixpack every day. Patient has a history of anxiety, depression, hypertension. Patient is eating his pain is 7 out of 10. (MORA FORRESTER VINEYARDIST) Review of Systems: Review of Systems: Constitutional: Denies fever or chills. [] Eyes: Denies change in visual acuity. [] HENT: Denies nasal congestion or sore throat. [] Respiratory: Denies cough or shortness of breath. [] Cardiovascular: Denies chest pain or edema. [] GI: + abdominal pain, denies nausea, vomiting, bloody stools or diarrhea. [] : Denies dysuria. [] Musculoskeletal: Denies back pain or joint pain. [] Integument: Denies rash. [] Neurologic: Denies headache, focal weakness or sensory changes. [] Endocrine: Denies polyuria or polydipsia. [] Lymphatic: Denies swollen glands. [] Psychiatric: Denies depression or anxiety. [] (MORA FORRESTER VINEYARDIST) Heart Score: C/O Chest Pain: No HEART Score for Chest Pain: HEART Score for Chest Pain Response (Comments) Value History Slighlty/Non-Suspicious 0 ECG Nonspecific Repolarizatio 1 Age < 45 0 Risk Factors 1 or 2 Risk Factors 1 Troponin < Normal Limit 0 Total 2 Risk Factors: Risk Factors: DM, Current or recent (<one month) smoker, HTN, HLP, family history of CAD, obesity. Risk Scores: Score 0 - 3: 2.5% MACE over next 6 weeks - Discharge Home Score 4 - 6: 20.3% MACE over next 6 weeks - Admit for Clinical Observation Score 7 - 10: 72.7% MACE over next 6 weeks - Early Invasive Strategies (MORA FORRESTER APRN) Current Medications: Current Medications Medications (Trade) Dose Ordered Sig/Barbara Start Time Stop Time Status Last Admin Dose Admin Famotidine (Pepcid Vial) 20 mg 1X ONCE 04/09/21 14:15 04/09/21 14:16 Fentanyl Citrate (Fentanyl 2ml Vial) 25 mcg 1X ONCE 04/09/21 14:15 04/09/21 14:16 Sodium Chloride 1,000 ml @ 1,000 mls/hr Q1H 04/09/21 14:15 04/09/21 15:14 [facility] Allergies: Allergies: Allergies Coded Allergies Type Severity Reaction Last Updated Verified No Known Drug Allergies 02/23/21 No ([facility]) Physical Exam: PE: Constitutional: Well developed, well nourished, no acute distress, non-toxic appearance. [] HENT: Normocephalic, atraumatic, bilateral external ears normal, oropharynx moist, no oral exudates, nose normal. [] Eyes: PERRLA, EOMI, conjunctiva normal, no discharge. [] Neck: Normal range of motion, no tenderness, supple, no stridor. [] Cardiovascular:Heart rate regular rhythm, no murmur [] Lungs & Thorax: Bilateral breath sounds clear to auscultation [] Abdomen: Bowel sounds normal, soft, no tenderness, no masses, no pulsatile masses. [] Skin: Warm, dry, no erythema, no rash. [] Back: No tenderness, no CVA tenderness. [] Extremities: No tenderness, no cyanosis, no clubbing, ROM intact, no edema. [] Neurologic: Alert and oriented X 3, normal motor function, normal sensory function, no focal deficits noted. [] Psychologic: Affect normal, judgement normal, mood normal. [] Normal physical exam ([facility]) Current Patient Data: Vital Signs: Vital Signs Date Time Temp Pulse Resp B/P (MAP) Pulse Ox O2 Delivery O2 Flow Rate FiO2 04/09/21 13:42 98.1 96 16 150/72 (98) 100 Room Air 98.1 ([facility] EKG: EK and read by Dr. Duque as a sinus rhythm and no STEMI (MORA FORRESTER APRN) Radiology/Procedures: Radiology/Procedures: [] Impression: [facility] [address] [place] [address] IMAGING REPORT Signed PATIENT: ARACELI HEADLEY ACCOUNT: [id number] : 1990 LOCATION: ER AGE: 30 SEX: M EXAM STATUS: REG ER ORD. PHYSICIAN: MORA FORRESTER APRN REASON: RUQ PAIN PROCEDURE: CT ABD PELV W/ IV CONTRST ONLY CT abdomen and pelvis with contrast: Reason for examination: Right upper quadrant pain. Comparison is made to previous study dated 02/23/2021. Helical images were obtained through the abdomen and pelvis with intravenous administration of 75 cc of Omnipaque 300. Reconstruction was performed in sagittal and coronal planes. Exposure: One or more of the following individualized dose reduction techniques were utilized for this examination: 1. Automated exposure control 2. Adjustment of the mA and/or kV according to patient size 3. Use of iterative reconstruction technique. Lung bases show some dependent atelectasis bilaterally. The heart size is normal with no pericardial effusion. There continues to be a subtle 9 mm hypodense lesion in the right lobe of the liver which is stable. No abnormality seen at the spleen, adrenal glands or pancreas. The gallbladder is contracted but shows no choleliths. The kidneys show no renal masses, renal calculi, hydronephrosis or evidence of obstructive uropathy. The abdominal aorta and inferior vena cava show no acute abnormalities. There continues to be a large amount fecal material throughout the colon with no wall thickening evident. The appendix is not definitely identified however there is very little intra-abdominal fat. The small intestinal tract shows no abnormal dilatation, wall thickening or obstruction. No abnormality seen at the stomach or duodenum. No abnormality seen at the bladder, prostate gland or seminal vesicles. No free fluid or free air seen in the abdomen or pelvis. No significant adenopathy is evident. No acute bony abnormalities are evident. IMPRESSION: Large amount of fecal material throughout the colon. Subtle 9 mm hypodensity in the right lobe of the liver without change. Contracted gallbladder however the patient has not been NPO. No other focal abnormality seen in the abdomen or pelvis. Electronically signed by: Jesse Weber MD (04/09/2021 4:16 PM) [facility] DICTATED and SIGNED BY: JESSE WEBER MD DATE: 04/09/21 [id number] (MORA FORRESTER APRN) Course & Med Decision Making: Course & Med Decision Making Pertinent Labs and Imaging studies reviewed. (See chart for details) See HPI. Alert and oriented x4. Ambulatory steady gait. Speaks in full clear sentences. Skin pink warm and dry. Abdomen is soft and nontender. He is not guarding there is no rigidity. Lungs are clear all station all lobes. [] (MORA FORRESTER APRN) Course & Med Decision Making I have reviewed the PA/PLANT CULTURE MANAGER's note and plan of care. I was available for consultation as needed during the patient's visit in the emergency department. (MARCELL DUQUE MD) Dragon Disclaimer: Dragon Disclaimer: This electronic medical record was generated, in whole or in part, using a voice recognition dictation system. (MORA FORRESTER APRN) Departure Departure Impression: Primary Impression: Constipation Qualified Codes: K59.00 - Constipation, unspecified Disposition: HOME / SELF CARE / HOMELESS Condition: STABLE Referrals: NO PCP (PCP) Patient Instructions: Constipation, Adult Additional Instructions: Follow-up with your primary care provider if needed. Drink plenty of water. Take medication as prescribed. Scripts Magnesium Citrate (MAGNESIUM CITRATE) 296 Ml Solution 296 ML PO ONCE, #296 ML Prov: MORA FORRESTER APRN 04/09/21 MORA FORRESTER APRN Apr 09, 2021 14:21 MARCELL DUQUE MD Apr 11, 2021 06:56
--- NOTE | 2021-04-09 14:53 | EKG ---
[facility] [address] [place] [address] Test Date: 2021-04-09 Test Time: 14:44:34 Pat Name: ARACELI HEADLEY Department: Room: Gender: M Manager Knowledge: : 1990 Requested By: MORA FORRESTER Order Number: [id number] Reading MD: Reyes Figueroa Measurements Intervals [place] Rate: 88 P: 61 MD: 152 QRS: 68 QRSD: 96 T: 36 QT: 354 QTc: 432 Interpretive Statements SINUS RHYTHM AMPLITUDE CRITERIA FOR LVH Electronically Signed On 04-11-2021 10:23:29 CREDIT ADMINISTRATION MANAGER by Reyes Figueroa
[2021-04-09 15:12] LABS: BASO % 1 % (0-3); EOS # 0.1 x10^3/uL (0.0-0.7); EOS % 2 % (0-3); HEMOGLOBIN 12.6 g/dL (13.0-17.5); LYMPH # 0.1 x10^3/uL (1.0-4.8); LYMPH % 4 % (24-48); MEAN CORPUSCULAR HEMOGLOBIN 31 pg (25-35); MEAN CORPUSCULAR HGB CONC 33 g/dL (31-37); MEAN CORPUSCULAR VOLUME 93 fL (79-100); MONO # 0.4 x10^3/uL (0.0-1.1); MONO % 9 % (0-9); NEUT # 3.6 x10^3/uL (1.8-7.7); NEUT % 85 % (31-73); PLATELET COUNT 174 x10^3/uL (140-400); RED BLOOD COUNT 4.08 x10^6/uL (4.30-5.70); RED CELL DISTRIBUTION WIDTH 13.1 % (11.5-14.5); WHITE BLOOD COUNT 4.2 x10^3/uL (4.0-11.0)
[2021-04-09 15:19] LABS: BILIRUBIN,URINE NEGATIVE (NEG); CLARITY,URINE CLEAR; COLOR,URINE YELLOW; NITRITE,URINE NEGATIVE (NEG); PH,URINE 6.5 (<5.0-8.0); PROTEIN,URINE NEGATIVE (NEG-TRACE); UROBILINOGEN,URINE 0.2 mg/dL (0.2 mg/dL)
[2021-04-09 15:19] LABS: CREATININE 0.8 mg/dL (0.7-1.3); GFR 112.8; POTASSIUM 4.3 mmol/L (3.5-5.1)
[2021-04-09 15:20] VITALS: BP 119/65
[2021-04-09 15:24] LABS: ALBUMIN 3.5 g/dL (3.4-5.0); ALBUMIN/GLOBULIN RATIO 1.2 (1.0-1.7); MAGNESIUM 1.9 mg/dL (1.8-2.4); TOTAL BILIRUBIN 0.2 mg/dL (0.2-1.0); TOTAL PROTEIN 6.5 g/dL (6.4-8.2)
[2021-04-09 15:26] LABS: BARBITURATES NEG (NEG); BENZODIAZEPINES NEG (NEG); CANNABINOIDS NEG (NEG); COCAINE NEG (NEG); METHADONE NEG (NEG); OPIATES NEG (NEG); PHENCYCLIDINE NEG (NEG)
[2021-04-09] MEDS ORDERED: IOHEXOL 300 MG/ML 100ML VIAL. IV ONE (15:30)
[2021-04-09 15:32] LABS: AMPHETAMINE/METHAMPHETAMINE NEG (NEG)
[2021-04-09 15:39] LABS: BACTERIA,URINE FEW /HPF (0-FEW); WBC,URINE OCC /HPF (0-4)
[2021-04-09] MEDS ORDERED: CONTRAST GIVEN. MC PRN (15:45)
--- NOTE | 2021-04-09 16:19 | RAD ---
CT abdomen and pelvis with contrast: Reason for examination: Right upper quadrant pain. Comparison is made to previous study dated 02/23/2021. Helical images were obtained through the abdomen and pelvis with intravenous administration of 75 cc of Omnipaque 300. Reconstruction was performed in sagittal and coronal planes. Exposure: One or more of the following individualized dose reduction techniques were utilized for thi s examination: 1. Automated exposure control 2. Adjustment of the mA and/or kV according to patient size 3. Use of iterative reconstruction technique. Lung bases show some dependent atelectasis bilaterally. The heart size is normal with no pericardial effusion. There continues to be a subtle 9 mm hypodense lesion in the right lobe of the liver which is stable. No abnormality seen at the spleen, adrenal glands or pancreas. The gallbladder is contracted but show s no choleliths. The kidneys show no renal masses, renal calculi, hydronephrosis or evidence of obstructive uropathy. The abdominal aorta and inferior vena cava show no acute abnormalities. There continues to be a large amount fecal material throughout the colon with no wall thickening evid ent. The appendix is not definitely identified however there is very little intra-abdominal fat. The small intestinal tract shows no abnormal dilatation, wall thickening or obstruction. No abnormality s een at the stomach or duodenum. No abnormality seen at the bladder, prostate gland or seminal vesicles. No free fluid or free air seen in the abdomen or pelvis. No significant adenopathy is evident. No acute bony abnormalities are evident. IMPRESSION: Large amount of fecal material throughout the colon. Subtle 9 mm hypodensity in the right lobe of the liver without change. Contracted gallbladder however the patient has not been NPO. No other focal abnormality seen in the abdomen or pelvis. Electronically signed by: Tory Ernandez MD (04/09/2021 4:16 PM) SUE
[2021-04-09] MEDS ORDERED: MAGN296S68 PO (16:24)
[2021-04-09 16:33] LABS: % BANDS 1 % (0-9); % EOS 2 % (0-5); % LYMPHS 4 % (24-48); % MONOS 8 % (0-10); % MYELOS 1 % (0-0); % SEGS 84 % (35-66)
[2021-04-09 16:34] LABS: PLT ESTIMATE ADEQUATE (ADEQUATE)
== END 2021-04-09 16:54 | disposition home or self-care (01) ==
LOC: ER 13:42
DX: K59.00 Constipation, unspecified (principal); I10 Essential (primary) hypertension; F41.9 Anxiety disorder, unspecified; F32.9 Major depressive disorder, single episode, unspecified; G89.29 Other chronic pain
CPT/HCPCS: 36415; 74177; 80053; 80307; 81001; 83690; 83735; 84484; 85007; 85025; 93005; 96361; 96374; 96375; 99285; J3010; J3490; J7030; Q9967

== ENCOUNTER 2021-04-22 16:31 | Emergency (ER) | payer SELFPAY ==
[~2021-04-22] VITALS: Ht 177.8 cm; Wt 71.1 kg
[~2021-04-22 16:31] MED LIST changes: +MAGN296S68 PO
[2021-04-22] MEDS ORDERED: TETRACAINE 0.5% OPHTH SOLUTION 4ML BOTTLE. OS ONE (17:15)
[2021-04-22] MEDS ORDERED: FLUORESCEIN OPHTH TEST STRIP. OS ONE (17:30)
--- NOTE | 2021-04-22 18:39 | PHYS DOC ---
Past Medical History Past Medical History: Anxiety, Depression, Hypertension Additional Past Medical Histor: Chronic pain Past Surgical History: No Surgical History, Other Additional Past Surgical Histo: L hand,L ankle,L shoulder Smoking Status: Never Smoker Alcohol Use: Heavy Additional Information: STATES THAT HE DRINKS HAS BEEN DRINKING A 6 PACK OR MORE PER NIGHT WITH STRESS Drug Use: None Social History Narrative: KRATUM, CBD General Adult EDM: Chief Complaint: HALLUCINATIONS AUDIBLE/VISUAL HPI: HPI: Patient is a 30 year old male who presents with states he saw noodles coming out of the wall and going into his left eye. He states at 1 point he saw a black spot in his left eye but now it is slightly blurred. Visual acuity done by nursing was good. Patient denies pain, itching, drainage, headache, dizziness, SI, HI, drug use, abdominal pain, nausea, vomiting, diarrhea, syncope chest pain, shortness of air, fever. Patient does continue to use Kratum. Review of Systems: Review of Systems: Constitutional: Denies fever or chills. [] Eyes: Denies change in visual acuity. +Eye disturbance[] HENT: Denies nasal congestion or sore throat. [] Respiratory: Denies cough or shortness of breath. [] Cardiovascular: Denies chest pain or edema. [] GI: Denies abdominal pain, nausea, vomiting, bloody stools or diarrhea. [] : Denies dysuria. [] Musculoskeletal: Denies back pain or joint pain. [] Integument: Denies rash. [] Neurologic: Denies headache, focal weakness or sensory changes. [] Endocrine: Denies polyuria or polydipsia. [] Lymphatic: Denies swollen glands. [] Psychiatric: Denies depression or anxiety. [] Heart Score: C/O Chest Pain: No Current Medications: Current Medications Medications (Trade) Dose Ordered Sig/Barbara Start Time Stop Time Status Last Admin Dose Admin Fluorescein Sodium (Ful-Venessa) 1 strip 1X ONCE 04/22/21 17:30 04/22/21 17:31 DC 04/22/21 17:58 1 STRIP Tetracaine HCl (Tetracaine) 1 drop 1X ONCE 04/22/21 17:15 04/22/21 17:16 DC 04/22/21 17:14 1 DROP Allergies: Allergies: Allergies Coded Allergies Type Severity Reaction Last Updated Verified citalopram Allergy Unknown 04/21/21 Yes Physical Exam: PE: Constitutional: Well developed, well nourished, no acute distress, non-toxic appearance. [] HENT: Normocephalic, atraumatic, bilateral external ears normal, oropharynx moist, no oral exudates, nose normal. [] Eyes: PERRLA, EOMI, conjunctiva normal, no discharge. [] Neck: Normal range of motion, no tenderness, supple, no stridor. [] Cardiovascular:Heart rate regular rhythm, no murmur [] Lungs & Thorax: Bilateral breath sounds clear to auscultation [] Abdomen: Bowel sounds normal, soft, no tenderness, no masses, no pulsatile masses. [] Skin: Warm, dry, no erythema, no rash. [] Back: No tenderness, no CVA tenderness. [] Extremities: No tenderness, no cyanosis, no clubbing, ROM intact, no edema. [] Neurologic: Alert and oriented X 3, normal motor function, normal sensory function, no focal deficits noted. [] Psychologic: Affect normal, judgement normal, mood normal. [] Normal physical exam Current Patient Data: Vital Signs: Vital Signs Date Time Temp Pulse Resp B/P (MAP) Pulse Ox O2 Delivery O2 Flow Rate FiO2 04/22/21 17:57 81 18 119/77 (91) 97 Room Air 04/22/21 16:51 99.0 99.0 EKG: EKG: [] Radiology/Procedures: Radiology/Procedures: [] Course & Med Decision Making: Course & Med Decision Making Pertinent Labs and Imaging studies reviewed. (See chart for details) See HPI. Alert and oriented x4. Ambulatory steady gait. Speaks in full clear sentences. PERRLA. No pain with movement of eye. Eye Exam Visual accuity: See nursing note. Eye exam: PERRL, Extraocular muscles intact. No signs of ruptured globe. Sclera clear. Red reflex present. Foreign body: No foreign bodies seen with examination or with lid flip exam. Devonte-pen: N/A Fluorescein test: corneal abrasion at 1200. Anesthetic: Tetracaine [] Dragon Disclaimer: Dragon Disclaimer: This electronic medical record was generated, in whole or in part, using a voice recognition dictation system. Departure Departure Impression: Primary Impression: Corneal abrasion Qualified Codes: S05.02XA - Injury of conjunctiva and corneal abrasion without foreign body, left eye, initial encounter Disposition: HOME / SELF CARE / HOMELESS Condition: STABLE Referrals: NO PCP (PCP) Patient Instructions: Eye - Corneal Abrasion Additional Instructions: You can follow-up with an eye doctor if you would like. Use antibiotic drops as they are prescribed. If you begin having any vision loss return to emergency room. Scripts Polymyxin B Sulf/Trimethoprim (POLYMYXIN B-TMP EYE DROPS) 10 Ml Drops 1 DROP EACHEYE QID for 7 Days, #10 ML 0 Refills Prov: MORA FORRESTER APRN 04/22/21 MORA FORRESTER APRN Apr 22, 2021 18:39
[2021-04-22] MEDS ORDERED: POLY10DR3 EACHEYE (19:09)
[2021-04-22 19:28] VITALS: BP 123/77
[2021-04-23] MEDS ORDERED: POLY10DR3 EACHEYE (12:30)
[2021-04-23] MEDS ORDERED: ERYT1OIN3 OS (12:30)
== END 2021-04-22 19:31 | disposition home or self-care (01) ==
LOC: ER 16:31
DX: S05.02XA Injury of conjunctiva and corneal abrasion without foreign body, left eye, initial encounter (principal); I10 Essential (primary) hypertension; G89.29 Other chronic pain; Z88.8 Allergy status to other drugs, medicaments and biological substances; X58.XXXA Exposure to other specified factors, initial encounter; Y93.89 Activity, other specified; Y92.89 Other specified places as the place of occurrence of the external cause; Y99.8 Other external cause status
CPT/HCPCS: 99285-25

== ENCOUNTER 2021-04-23 10:03 | Emergency (ER) | payer SELFPAY ==
[~2021-04-23] VITALS: Ht 177.8 cm; Wt 72.7 kg
[~2021-04-23 10:03] MED LIST changes: +POLY10DR3 EACHEYE
[2021-04-23] MEDS ORDERED: FLUORESCEIN OPHTH TEST STRIP. OD ONE (11:00)
[2021-04-23] MEDS ORDERED: TETRACAINE 0.5% OPHTH SOLUTION 4ML BOTTLE. OD ONE (11:00)
[2021-04-23 11:26] LABS: BASO % 0 % (0-3); EOS % 0 % (0-3); HEMATOCRIT 43.2 % (39.0-53.0); HEMOGLOBIN 14.7 g/dL (13.0-17.5); LYMPH # 1.6 x10^3/uL (1.0-4.8); LYMPH % 25 % (24-48); MEAN CORPUSCULAR HEMOGLOBIN 31 pg (25-35); MEAN CORPUSCULAR HGB CONC 34 g/dL (31-37); MEAN CORPUSCULAR VOLUME 91 fL (79-100); MONO # 0.5 x10^3/uL (0.0-1.1); MONO % 8 % (0-9); NEUT # 4.2 x10^3/uL (1.8-7.7); NEUT % 66 % (31-73); PLATELET COUNT 296 x10^3/uL (140-400); RED BLOOD COUNT 4.76 x10^6/uL (4.30-5.70); RED CELL DISTRIBUTION WIDTH 13.2 % (11.5-14.5); WHITE BLOOD COUNT 6.3 x10^3/uL (4.0-11.0)
[2021-04-23 11:27] LABS: BARBITURATES NEG (NEG); BENZODIAZEPINES NEG (NEG); CANNABINOIDS NEG (NEG); COCAINE NEG (NEG); METHADONE NEG (NEG); OPIATES NEG (NEG); PHENCYCLIDINE NEG (NEG)
[2021-04-23 11:30] LABS: CALCIUM 8.1 mg/dL (8.5-10.1); CREATININE 0.7 mg/dL (0.7-1.3); GFR 131.5; POTASSIUM 4.1 mmol/L (3.5-5.1)
[2021-04-23 11:31] LABS: AMPHETAMINE/METHAMPHETAMINE NEG (NEG)
[2021-04-23 11:36] LABS: TOTAL BILIRUBIN 0.4 mg/dL (0.2-1.0); TOTAL PROTEIN 8.2 g/dL (6.4-8.2)
--- NOTE | 2021-04-23 12:06 | PHYS DOC ---
Past Medical History Past Medical History: Anxiety, Depression, Hypertension Additional Past Medical Histor: Chronic pain, HALLUCINATIONS Past Surgical History: No Surgical History, Other Additional Past Surgical Histo: L hand,L ankle,L shoulder Smoking Status: Never Smoker Alcohol Use: Heavy Drug Use: None General Adult EDM: Chief Complaint: HALLUCINATIONS AUDIBLE/VISUAL HPI: HPI: Patient is a 30 year old male who admits to alcohol and kratom abuse who presents with complaints of scratching sensation in his right eye. He has been seen here several times in recent days complaining of visual hallucinations with shrapnel flying around his room. He is convinced that he has scratched his right eye. He was seen yesterday and found to have a corneal abrasion on the left eye and was discharged on antibiotic ointment. His left eye is improving. He admits to alcohol use as recently as this morning. Drinks approximately 8 beers per day. Had 2 beers prior to arrival today. Uses kratom daily for chronic pain. He is insistent that his hallucinations are not from his alcohol or kratom use. We had our psychiatric assessment team see him today, and he did not want any help with his substance abuse or hallucinations. Review of Systems: Review of Systems: Constitutional: Denies fever or chills. [] Eyes: Right eye discomfort. HENT: Denies nasal congestion or sore throat. [] Respiratory: Denies cough or shortness of breath. [] Cardiovascular: Denies chest pain or edema. [] GI: Denies abdominal pain, nausea, vomiting, bloody stools or diarrhea. [] : Denies dysuria. [] Musculoskeletal: Denies back pain or joint pain. [] Integument: Denies rash. [] Neurologic: Denies headache, focal weakness or sensory changes. [] Psychiatric: Reports visual and auditory hallucinations. Denies SI/HI denies depression or anxiety. [] Heart Score: C/O Chest Pain: No Current Medications: Current Medications Medications (Trade) Dose Ordered Sig/Barbara Start Time Stop Time Status Last Admin Dose Admin Fluorescein Sodium (Ful-Venessa) 1 strip 1X ONCE 04/23/21 11:00 04/23/21 11:01 DC 04/23/21 11:00 1 STRIP Tetracaine HCl (Tetracaine) 1 drop 1X ONCE 04/23/21 11:00 04/23/21 11:01 DC 04/23/21 11:00 1 DROP Allergies: Allergies: Allergies Coded Allergies Type Severity Reaction Last Updated Verified citalopram Allergy Unknown 04/21/21 Yes Physical Exam: PE: Constitutional: Well developed, well nourished, no acute distress, non-toxic appearance. [] HENT: Normocephalic, atraumatic Eyes: Pupils 5 mm, equal, reactive. Right-sided fluorescein exam without uptake. Left fluorescein exam with evidence of corneal abrasion at 5 o'clock position. EOMI. Visual acuity grossly intact OU. No conjunctival injection or evidence of foreign body. Cardiovascular: Tachycardic, regular rhythm Lungs & Thorax: Bilateral breath sounds clear to auscultation [] Abdomen: Bowel sounds normal, soft, no tenderness, no masses, no pulsatile masses. [] Skin: Warm, dry, no erythema, no rash. [] Extremities: No tenderness, no cyanosis, no clubbing, ROM intact, no edema. [] Neurologic: Alert and oriented X 3, no tremor. Normal gross motor function, normal sensory function, no focal deficits noted. [] Psychologic: Evidence of paranoia. Reports visual and auditory hallucinations. No SI/HI. At times follows linearly and logically, but then will exhibit evidence of paranoid delusions. Anxious stated mood, congruent affect. Current Patient Data: Labs: Laboratory Tests Test 04/23/21 11:04 04/23/21 11:10 Urine Opiates Screen Neg (NEG) Urine Methadone Screen Neg (NEG) Urine Barbiturates Neg (NEG) Urine Phencyclidine Screen Neg (NEG) Urine Amphetamine/Methamphetamine Neg (NEG) Urine Benzodiazepines Screen Neg (NEG) Urine Cocaine Screen Neg (NEG) Urine Cannabinoids Screen Neg (NEG) Urine Ethyl Alcohol Pos (NEG) White Blood Count 6.3 x10^3/uL (4.0-11.0) Red Blood Count 4.76 x10^6/uL (4.30-5.70) Hemoglobin 14.7 g/dL (13.0-17.5) Hematocrit 43.2 % (39.0-53.0) Mean Corpuscular Volume 91 fL (79-100) Mean Corpuscular Hemoglobin 31 pg (25-35) Mean Corpuscular Hemoglobin Concent 34 g/dL (31-37) Red Cell Distribution Width 13.2 % (11.5-14.5) Platelet Count 296 x10^3/uL (140-400) Neutrophils (%) (Auto) 66 % (31-73) Lymphocytes (%) (Auto) 25 % (24-48) Monocytes (%) (Auto) 8 % (0-9) Eosinophils (%) (Auto) 0 % (0-3) Basophils (%) (Auto) 0 % (0-3) Neutrophils # (Auto) 4.2 x10^3/uL (1.8-7.7) Lymphocytes # (Auto) 1.6 x10^3/uL (1.0-4.8) Monocytes # (Auto) 0.5 x10^3/uL (0.0-1.1) Eosinophils # (Auto) 0.0 x10^3/uL (0.0-0.7) Basophils # (Auto) 0.0 x10^3/uL (0.0-0.2) Sodium Level 141 mmol/L (136-145) Potassium Level 4.1 mmol/L (3.5-5.1) Chloride Level 104 mmol/L (98-107) Carbon Dioxide Level 27 mmol/L (21-32) Anion Gap 10 (6-14) Blood Urea Nitrogen 11 mg/dL (8-26) Creatinine 0.7 mg/dL (0.7-1.3) Estimated GFR (Cockcroft-Gault) 131.5 BUN/Creatinine Ratio 16 (6-20) Glucose Level 101 mg/dL (70-99) H Calcium Level 8.1 mg/dL (8.5-10.1) L Total Bilirubin 0.4 mg/dL (0.2-1.0) Aspartate Amino Transferase (AST) 60 U/L (15-37) H Alanine Aminotransferase (ALT) 52 U/L (16-63) Alkaline Phosphatase 93 U/L (46-116) Total Protein 8.2 g/dL (6.4-8.2) Albumin 4.0 g/dL (3.4-5.0) Albumin/Globulin Ratio 1.0 (1.0-1.7) Laboratory Tests 04/23/21 11:10 Laboratory Tests 04/23/21 11:10 Vital Signs: Vital Signs Date Time Temp Pulse Resp B/P (MAP) Pulse Ox O2 Delivery O2 Flow Rate FiO2 04/23/21 10:46 98.4 120 18 127/87 (100) 96 Room Air 98.4 EKG: EKG: [] Radiology/Procedures: Radiology/Procedures: [] Course & Med Decision Making: Course & Med Decision Making Pertinent Labs and Imaging studies reviewed. (See chart for details) Patient a 30-year-old male with polysubstance abuse presents complaining of right eye scratching. He thinks that shrapnel went into his eye, but also admits to hallucinations of shrapnel and auditory hallucinations. His eye exam was normal except for bilateral midriasis and continued left-sided corneal abrasion. Right side fluorescein exam without evidence of open globe, corneal abrasion, conjunctival irritation, or foreign body.3 Patient states he lost his antibiotic ointment. Will provide replacement Rx. He is exhibiting evidence of paranoid delusions. Denies SI/HI. He is not demonstrably a danger to himself. Do not feel that he meets criteria for involuntary hold. Psychiatric assessment team evaluated him and agreed. He was offered inpatient rehab/treatment, but declined. He does not seem to be withdrawing from alcohol at this time. Has been drinking his usual amount over the past 2-3 days. He was given outpatient resources. [id number] Jayjay Disclaimer: Jayjay Disclaimer: This electronic medical record was generated, in whole or in part, using a voice recognition dictation system. Departure Departure Impression: Primary Impression: Irritation of right eye Additional Impressions: Visual hallucination Auditory hallucination Right cornea abrasion Disposition: 01 HOME / SELF CARE / HOMELESS Condition: STABLE Referrals: NO PCP (PCP) Patient Instructions: Eye - Corneal Abrasion Additional Instructions: please use antibiotic ointment on your eye 4 times a day for the next 5 days. If you want help with your hallucinations or with your kratom/alcohol use please see the resources provided by our PAT team Scripts Erythromycin Base (Erythromycin) 1 Gm Oint...g. 1 GM OS QID for 5 Days, #1 MISC 0 Refills Prov: MARCELL DUQUE MD 04/23/21 MARCELL DUQUE MD Apr 23, 2021 12:06
[2021-04-23] MEDS ORDERED: POLY10DR3 EACHEYE (12:30)
[2021-04-23] MEDS ORDERED: ERYT1OIN3 OS (12:30)
[2021-04-23] MEDS ORDERED: FLUORESCEIN OPHTH TEST STRIP. OS ONE (12:30)
[2021-04-23 13:00] VITALS: BP 135/83
== END 2021-04-23 13:15 | disposition home or self-care (01) ==
LOC: ER 10:03
DX: S05.02XA Injury of conjunctiva and corneal abrasion without foreign body, left eye, initial encounter (principal); R44.1 Visual hallucinations; R44.0 Auditory hallucinations; G89.29 Other chronic pain; I10 Essential (primary) hypertension; Z88.8 Allergy status to other drugs, medicaments and biological substances; X58.XXXA Exposure to other specified factors, initial encounter; Y93.89 Activity, other specified; Y92.89 Other specified places as the place of occurrence of the external cause; Y99.8 Other external cause status
CPT/HCPCS: 36415; 80053; 80307; 85025; 99284